=== PATIENT | female | born 1990 | race African-American/Black ===

== ENCOUNTER 2020-02-24 09:11 | Emergency (ER) | payer BC, MEDICAID, SELFPAY ==
--- NOTE | 2020-02-24 09:24 | ED.EYEPROB ---
HPI - Eye Problem General Chief complaint: Eye Problems Stated complaint: eye problems Time Seen by Provider: 02/24/20 09:45 Source: patient and RN notes reviewed Mode of arrival: ambulatory Limitations: no limitations History of Present Illness HPI Narrative: 30-year-old female presents with concern for right upper and lower eyelid swelling, right facial swelling and tenderness. Denies vision changes, reports small amount of crusty drainage to the right eye. Reports chronic sinus congestion. Reports taking an Aleve D yesterday, and using [id number] Visine eyedrops with little relief. She denies fever, malaise. chief complaint: other (Sinus tenderness) Related Data Home Medications Medication Instructions Recorded Confirmed albuterol sulfate 2 inh INHALATION Q4-5H PRN 02/24/20 02/24/20 Allergies Allergy/AdvReac Type Severity Reaction Status Date / Time No Known Allergies Allergy Verified 02/24/20 09:45 Review of Systems Review of Systems: Narrative: CONSTITUTIONAL: Denies malaise, chills, sweats, or fever. EYES: Denies visual changes, redness. Reports mild upper and lower eyelid swelling with small amount of crusty discharge. ENT: Denies rhinorrhea, otalgia or sore throat. Reports nasal congestion, frontal sinus tenderness CARDIOVASCULAR: Denies chest pain, palpitations, or edema. RESPIRATORY: Denies cough or dyspnea. SKIN: Denies rash or itching. MUSCULOSKELETAL: Denies myalgia. NEUROLOGIC: Denies numbness, weakness, or headache. All systems reviewed & are unremarkable except as noted in HPI and below PMFSH Comments At time of signature, agree with nursing past medical, surgical, social and family history. There is no relevant family history pertinent to the presenting complaint Exam Narrative: Exam Narrative: GENERAL: Well-appearing, well-nourished, and in no acute distress. HEAD: Normocephalic EYES: PERRLA, conjunctivae clear, sclera clear, EOMI, no drainage noted. Mild upper eyelid edema. No hordeolum, chalazion noted ENT: Nares clear, turbinates edematous and erythematous, clear discharge. Mucous membranes moist. TM pearly jesus with dull light reflex bilaterally; no tragal tenderness. Oropharynx not erythematous without lesions. Tonsils not enlarged and without exudate, no drooling, no hoarseness, no trismus, uvula midline. Maxillary sinus tenderness, mild right facial edema above maxillary sinuses NECK: Supple. No lymphadenopathy CHEST: Clear to auscultation, breath sounds equal. No wheezing, rhonchi, rales, or stridor. No respiratory distress, speaks in full sentences. HEART: Regular rate and rhythm. No murmur heard. SKIN: Warm, dry, no rash. NEURO: Alert and oriented x3. PSYCH: Normal mood and affect Course Course Emergency Course: Patient is aware of diagnosis, understands and agrees to treatment plan. Anticipatory guidance given. Patient agrees to follow-up as directed and is aware of reasons to seek care at the emergency department. Portions of this record may have been created with voice recognition software Vital Signs Vital signs: Reviewed. MDM - Eye Problem MDM Narrative Medical decision making narrative: Differential diagnosis considered: Conjunctivitis, hordeolum, chalazion, eye foreign body, strep pharyngitis, allergic rhinitis, upper respiratory tract infection, sinusitis, rhinosinusitis, nasopharyngitis. viral pharyngitis, otitis media, otitis externa, pneumonia, bronchitis, viral cough syndrome, viral syndrome, and influenza. Exam findings show no acute concerns or changes; patient is non-toxic appearing and is in no distress. Patient is appropriate for outpatient treatment and follow-up. Critical Care Time Critical Care Time Critical Care Time: No Discharge Plan Discharge Clinical Impression: Acute bacterial sinusitis Patient Disposition: Home, Self-Care Condition: Stable Instructions: Antibiotic Form, Sinusitis (ED) Additional Instructions: Take medicatio
[2020-02-24 09:45] VITALS: BP 137/89; PULSE 88; RESP 20; TEMP 36.9; O2SAT 100
== END 2020-02-24 10:03 | disposition home or self-care (01) ==
PROVIDERS: Emergency Provider Nurse Practitioner
DX: J01.90 Acute sinusitis, unspecified (principal); B96.89 Other specified bacterial agents as the cause of diseases classified elsewhere; J45.909 Unspecified asthma, uncomplicated; Z98.84 Bariatric surgery status
CPT/HCPCS: 99213; G0463

== ENCOUNTER 2020-03-20 08:15 | Emergency (ER) | payer BC, MEDICAID, SELFPAY ==
[2020-03-20 08:36] VITALS: BP 135/90; PULSE 90; RESP 16; TEMP 37.4; O2SAT 100
--- NOTE | 2020-03-20 08:43 | ED.URI ---
HPI - URI/Sore Throat General Chief Complaint: Upper Respiratory Infection Stated Complaint: ear/nose/throat Time Seen by Provider: 03/20/20 08:43 Source: patient and RN notes reviewed History of Present Illness HPI Narrative: Patient is a 30-year-old female who presents the urgent care with complaints of a sinus infection. Patient was seen here 1 month ago and placed on prednisone and Augmentin at that time. Patient states that she also had a negative COVID test. Patient states that her current symptoms started on Wednesday after it started raining . Patient states that she has had runny nose, flareup in her asthma, sinus pressure, and intermittent congestion. Patient has been using Tylenol, Vicks and a dose of Claritin yesterday. Patient is also requesting a refill of her albuterol inhaler. Currently denies any known fevers, nausea, vomiting, shortness of breath. No other acute complaints. No acute distress noted. Patient aware of the plan of care. Related Data Allergies Allergy/AdvReac Type Severity Reaction Status Date / Time No Known Allergies Allergy Verified 03/20/20 08:45 Review of Systems Review of Systems: Narrative: CONSTITUTIONAL: Denies fever, chills, or sweats. EYES: Denies visual changes, redness, or discharge. ENT: Reports of rhinorrhea, congestion, postnasal drainage CARDIOVASCULAR: Denies chest pain, palpitations, or edema. RESPIRATORY: Denies cough or dyspnea. GASTROINTESTINAL: Denies abdominal pain, nausea, vomiting, or diarrhea. GENITOURINARY: Denies dysuria or hematuria. SKIN: Denies rash or itching. MUSCULOSKELETAL: Denies back pain, joint pain, or myalgia. NEUROLOGIC: Denies headache, numbness, or weakness. All other systems reviewed are negative, except as documented in HPI. PMFSH Social History Social History Gender identity (if verbalized by the patient): Female Comments At the time of my signature, I reviewed and agree with the nursing past medical, surgical, social, and family history. There is no relevant family history pertinent to the patient complaint. Exam Narrative: Exam Narrative: GENERAL: This is a well-nourished, well-developed patient, in no apparent distress. HEAD: normocephalic, atraumatic. Mild frontal sinus tenderness EYES: PERRL. Sclera clear/white. Vision is grossly intact. EARS: External ears normal, auditory canals clear and without drainage, TMs normal without perforation. Hearing grossly intact. NOSE: External nose normal with no obvious nasal discharge, nares without redness, no rhinorrhea. THROAT: Mucous membranes moist, posterior pharynx clear. Mild postnasal drainage NECK: Neck supple CARDIOVASCULAR: Regular rate and rhythm without murmurs, gallops, or rubs. RESPIRATORY: Clear to auscultation. Breath sounds equal bilaterally. No wheezes, rales, or rhonchi. SKIN: warm, intact with no suspicious lesions or rash, good texture and turgor. NEURO: awake, alert, and oriented to person, place and time. There were no obvious focal neurologic abnormalities. EXTREMITIES: No clubbing, cyanosis, or edema. Course Vital Signs Vital signs: Vital Signs Temperature 99.3 F 03/20/20 08:36 Pulse Rate 90 03/20/20 08:36 Respiratory Rate 16 03/20/20 08:36 Blood Pressure 135/90 03/20/20 08:36 Pulse Oximetry 100 03/20/20 08:36 Temperature 99.3 F 03/20/20 08:36 Pulse Rate 90 03/20/20 08:36 Respiratory Rate 16 03/20/20 08:36 Blood Pressure 135/90 03/20/20 08:36 Pulse Oximetry 100 03/20/20 08:36 Reviewed MDM - URI/Sore Throat MDM Narrative Medical decision making narrative: Advised the patient to continue using an [id number] antihistamine such as Claritin or Zyrtec daily. Use the Flonase nasal spray daily. Complete steroid regimen as prescribed. Make sure to eat and drink with the medication. Use albuterol inhaler as needed for asthma-like symptoms. If you develop any increase in symptoms associated with fever, nausea, vomiting, severe hea
== END 2020-03-20 08:57 | disposition home or self-care (01) ==
PROVIDERS: Emergency Provider Nurse Practitioner Family
DX: J00 Acute nasopharyngitis [common cold] (principal); J32.9 Chronic sinusitis, unspecified; J45.909 Unspecified asthma, uncomplicated; Z98.84 Bariatric surgery status
CPT/HCPCS: 99213; G0463

== ENCOUNTER 2021-08-04 15:13 | Emergency (ER) | payer OTHER, SELFPAY ==
[2021-08-04 15:25] VITALS: BP 110/71; PULSE 80; RESP 16; TEMP 37.1; O2SAT 100
--- NOTE | 2021-08-04 15:25 | ED.URI ---
HPI - URI/Sore Throat General Chief Complaint: Unspecified Stated Complaint: Chest Pain Time Seen by Provider: 08/04/21 15:25 Source: patient, RN notes reviewed and old records reviewed Mode of arrival: ambulatory Limitations: no limitations History of Present Illness HPI Narrative: 31-year-old female presents to the [facility] with complaints of chest wall pain when she is deep breathing. Has some issues with her asthma last weeks during the cold/warm days alternating. Is out of her inhaler as well. Called her primary care provider who sent her to the [facility] to be evaluated. Denies fevers. No chest pain, abdominal pain. No nausea vomiting or diarrhea. Denies shortness of breath currently. pain is easy to reproduce with palpation Related Data Allergies Allergy/AdvReac Type Severity Reaction Status Date / Time No Known Allergies Allergy Verified 08/04/21 15:34 Review of Systems Review of Systems: All systems reviewed & are unremarkable except as noted in HPI and below Constitutional: Constitutional: Reports no additional constitutional complaints, Denies chills and Denies fever(s) Eyes: Eyes: Reports no additional eye complaints ENT: Reports system reviewed and no additional complaints, except as documented Cardiovascular: Cardiovascular: Reports no additional cardiovascular complaints and Denies chest pain Respiratory: Respiratory: Reports no additional respiratory complaints, Denies chest congestion, Denies cough, Denies dyspnea and Denies wheezing Gastrointestinal: Gastrointestinal: Reports no additional gastrointestinal complaints, Denies abdominal pain, Denies nausea and Denies vomiting Musculoskeletal: Musculoskeletal: Reports no additional musculoskeletal complaints Integumentary/Breasts: Skin/Breast: Reports system reviewed and no additional complaints, except as docu Neurologic: Reports system reviewed and no additional complaints, except as documented Psychiatric: Psychiatric: Reports no additional psychiatric complaints Allergic/Immunologic: Allergic/Immunologic: Reports no additional allergic/immunologic complaints [facility] Past Medical History Medical History History of asthma Surgical History Surgical History (Updated 08/04/21 @ 15:37 by Digna Whitfield) History of weight loss surgery April 2019 Social History Social History (Updated 08/04/21 @ 15:38 by Digna Whitfield) Living arrangements: with family Occupation/Education: occupation Additional occupation/education comments: [employer] Gender identity (if verbalized by the patient): Female Comments At the time of my signature, I reviewed and agree with the nursing past medical, surgical, social, and family history. There is no relevant family history pertinent to the patient complaint. Exam Const: General: healthy appearing, no acute distress and alert Nutritional Appearance: well nourished Orientation/consciousness: patient oriented x3 HENMT: Head: normal to inspection Ears: external ears normal, TM's normal bilaterally and EAC's normal Mouth: Yes Normal oral and palatal mucosa present Throat: posterior oropharynx normal Eyes: Conjunctivae: conjunctivae normal Pupils: Equal, round and reactive pupils present Neck: Neck: normal visual inspection Chest: Chest palpation & inspection: tenderness (Right sternal border) no pectoral muscle xxx Resp: Effort & Inspection: normal respiratory effort and no use of accessory muscles Auscultation: clear to auscultation bilaterally, no crackles, no rales, no rhonchi and no wheezes Cardio: Rate: regular rate Rhythm: regular rhythm GI: GI Palp: Yes Soft to palpation and No Tenderness to palpation present (GI) Back/Spine/Pelvis: Back: no CVA tenderness Skin: General skin exam: normal color Rashes: no rashes Wounds: no wounds Neuro: General: patient oriented x3, moves all extremities, no meningeal signs and no focal motor def
== END 2021-08-04 15:40 | disposition home or self-care (01) ==
PROVIDERS: Emergency Provider Nurse Practitioner; PCP Emergency Medicine
DX: M94.0 Chondrocostal junction syndrome [Tietze] (principal)
CPT/HCPCS: 99213; G0463

== ENCOUNTER → 2021-08-26 10:16 | Outpatient (CLI) | payer OTHER, SELFPAY ==
[2021-08-27 13:33] LABS: SARS-CoV-2 RNA PCR Positive
== END ==
PROVIDERS: PCP Emergency Medicine; Visit Provider Emergency Medicine
DX: U07.1 COVID-19 (principal)
CPT/HCPCS: C9803; U0003; U0005

== ENCOUNTER 2022-01-14 07:10 | Outpatient (CLI) | payer OTHER, SELFPAY ==
--- NOTE | ~2022-01-14 | CT_ITS ---
EXAMINATION: CT abdomen pelvis wo con DATE: 01/14/2022 07:30 INDICATION: Right upper quadrant abdominal pain and nausea TECHNIQUE: Computed tomography (CT) of the abdomen and pelvis was performed without intravenous contr ast. Automated exposure control and iterative reconstruction technique were employed. The dose-length product was 289.30 mGy-cm. COMPARISON: None FINDINGS: Lung bases are clear. Just inferior heart is normal. No pericardial or pleural effusion. Small slidin g-type hiatal hernia. Postoperative changes along the stomach suggesting possible gastric bypass proc edure. High attenuation sludge versus tiny gallstones layering in the dependent aspect of the otherwi se normal gallbladder. No gallbladder dilation, wall thickening or pericholecystic inflammatory stran ding to suggest acute cholecystitis. Liver, spleen, pancreas and bilateral adrenal glands are normal. Kidneys and ureters are normal with no urolithiasis, hydroureteronephrosis or perinephric/ureteral s tranding. Bladder and anteverted uterus are unremarkable. Suggestion of tubal ligation rings at the b ilateral adnexa. There are also a couple phleboliths at the left adnexa. Normal retrocecal appendix. Likely ingested pill within a loop of small bowel in the pelvis. No abnormal bowel wall thickening or obstruction. IMPRESSION: 1. Sludge versus gallstones layering in the otherwise normal gallbladder. No evident acute intra-abdo endy/pelvic process. 2. Small sliding-type hiatal hernia with change of likely gastric bypass procedure. Reviewed, dictated and finalized at location A. IMPRESSION: 1. Sludge versus gallstones layering in the otherwise normal gallbladder. No ev ident acute intra-abdominal/pelvic process. 2. Small sliding-type hiatal hernia with change of likely gastric bypass proced ure.
--- NOTE | ~2022-01-14 | US_ITS ---
EXAMINATION: US abdomen complete DATE: 01/14/2022 08:01 INDICATION: Right upper quadrant abdominal pain. Nausea. TECHNIQUE: Multiple grayscale and Doppler ultrasound images of the abdomen were obtained. COMPARISON: CT abdomen and pelvis 01/14/2022 FINDINGS: The visualized portions of the head and body of the pancreas are normal. Abdominal aorta an d inferior vena cava are normal. The liver is normal without focal lesion. There is normal flow in ma in portal vein. The gallbladder is normal in size and contains gallstones. No gallbladder wall thicke luis or sonographic Darling sign. The common duct is normal and measures 2 mm. The kidneys are normal in size. The spleen is normal in size. IMPRESSION: 1. Cholelithiasis. No evidence of acute cholecystitis. Reviewed, dictated and finalized at location B.
[2022-01-14 08:47] LABS: Hematocrit 38.2 % (37.0-47.0); Hemoglobin 12.4 g/dL (12.0-15.0); Mean Corpuscular HGB Conc 32.5 g/dl (32-36); Mean Corpuscular Hemoglobin 30.4 pg (26-34); Mean Corpuscular Volume 93.6 fl (80-100); Mean Platelet Volume 11.2 fl (7.4-10.4); Platelet Count Result 183 k/mm3 (150-375); Red Blood Count 4.08 M/mm3 (4.2-5.4); Red Cell Distribution Width 11.9 % (11.5-14.5); White Blood Count 6.2 K/mm3 (4.5-10.0)
[2022-01-14 08:59] LABS: Alanine Aminotransferase 14 U/L (6-35); Albumin Level 4.5 g/dL (3.5-5.1); Alkaline Phosphatase 131 U/L (38-126); Anion Gap 6 mmol/L (8-16); Aspartate Amino Transferase 23 U/L (14-36); Bilirubin,Total 1.2 mg/dL (0.2-1.3); Blood Urea Nitrogen 12 mg/dL (7-17); Calcium 8.2 mg/dL (8.4-10.2); Carbon Dioxide 22 mmol/L (22-30); Chloride 108 mmol/L (98-107); Cholesterol 137 mg/dL (0-200); Estimated Glomerular Filt Rate > 60; Glucose 87 mg/dL (65-110); HDL Direct 51 mg/dL; Potassium 3.8 mmol/L (3.4-5.0); Sodium 136 mmol/L (137-145); Triglycerides 45 mg/dL (<150)
[2022-01-14 09:12] LABS: LDL Cholesterol Direct 57 mg/dL
[2022-01-14 09:34] LABS: Iron 104 ug/dL (37-170)
[2022-01-14 09:36] LABS: Hepatitis B Surface Antigen Negative (Negative)
[2022-01-14 09:42] LABS: HAV RESULT Negative (Negative); Hepatitis B Core IgM Result Negative (Negative)
[2022-01-14 09:46] LABS: Percent Iron Saturation 38 % (20-50)
[2022-01-14 09:50] LABS: Free T4 Free Thyroxine 1.35 ng/mL (0.78-2.19)
[2022-01-14 09:54] LABS: Hepatitis C Virus Antibody Negative (Negative)
[2022-01-14 12:47] LABS: Hemoglobin A1C 4.7 % (<5.7)
== END 2022-01-14 07:11 | disposition home or self-care (01) ==
PROVIDERS: PCP Emergency Medicine; Visit Provider Emergency Medicine
DX: R10.9 Unspecified abdominal pain (principal); K80.20 Calculus of gallbladder without cholecystitis without obstruction; J45.909 Unspecified asthma, uncomplicated; K44.9 Diaphragmatic hernia without obstruction or gangrene
CPT/HCPCS: 36415; 74176; 76700; 80053; 80061; 80074; 83036; 83540; 83550; 84439; 84443; 85027

== ENCOUNTER 2022-04-08 01:27 | Day surgery (SDC) | payer OTHER, SELFPAY ==
[2022-03-31 17:02] VITALS: BMI 23.1
--- NOTE | 2022-03-31 17:17 | PC.NURSE ---
Addendum entered by Wil Soliman RN 03/31/22 17:19: Hold multivitamin on 04/05/22 Original Note: Report to the Outpatient Waiting Room, entrance under the green pavilion located off [address], at time _1100 on date 04/08/22. OR Time: 1300 - You and your visitor will be asked a series of questions to screen for COVID 19 for your protection. - Only one visitor is allowed at this time. - The patient visitor is requested to leave or wait in car when not with patient. - A mask is required within the hospital. Patients may have clear liquids (water, carbonated beverages, clear teas, apple juice) until 3 hours prior to surgery with a maximum of 20 ounces. - No food from midnight until time of surgery - Infants may have breast milk until 4 hours before surgery, infant formula 6 hours prior to surgery. - Children will be allowed to drink immediately following surgery. If applicable, please bring a bottle or sippy cup to assist with drinking. Juice, water, soda, and popsicles are readily available. For infants on formula, please bring formula the day of surgery. Pacifiers are allowed. Take the following medications with a SIP of water the morning of surgery: n/a Medications to discontinue per physician Date to take last dose Please no make-up, nail amharic, hairspray, perfume, deodorant, or body powder the day of surgery. No jewelry (including any body piercings) or valuables the day of surgery, leave them at home. Please take a shower or bath the night before, or the morning of, surgery with an antibacterial soap. Wear comfortable, loose fitting clothing. Children are encouraged to wear pajamas. - Jewelry must be removed prior to entering the operating room. Rings and piercings that are not removed may be cut off. - The hospital will not accept responsibility for valuables. - Please leave all valuables, including medications, at home the day of surgery. If you are going home after surgery, a licensed driver helper must drive you home. - NO public transportation without another adult. - We recommend that an adult stay with you for 24 hours following discharge. - We also recommend that you do not drive, make important decision, drink alcoholic beverages, or take any drugs that were not prescribed by your health care provider for at least 24 hours after your discharge time. For Pediatric surgeries, we recommend two adults accompany the child home (only one inside the building at this time). Follow any additional instructions given to you from your surgeon. If you or anyone in your household have experienced Covid symptoms in the past week, please notify your surgeon or the nurse liaison at the phone number below for possible testing. Telephone instructions given to Brandie Najera and asked if any additional questions and then verbalized understanding. Patient advised to call surgeon office or pre surgery nurse liaison [phone] if any additional questions.
--- NOTE | 2022-04-07 15:37 | P.PNAN_ITS ---
Anes - Initial Pre Proc Eval Procedure: Operation Date: 04/08/22 13:00 Proposed Procedures p Rectal Exam Under Anesthesia, Internal Hemorrhoid Banding - Merlin Clemente DO Date/Time: 04/07/22 15:37 Surgeon: Merlin Clemente DO Pre Op Diagnosis: grade 3 internal hemorrhoids Patient Data Age: 32 Gender: F Height: 1.78 m Weight: 73 kg Allergies Allergy/AdvReac Type Severity Reaction Status Date / Time No Known Allergies Allergy Verified 03/27/22 09:37 Home Medications Medication Instructions Recorded Confirmed Type albuterol sulfate 90 mcg/actuation 2 puff inhalation QID PRN 03/20/20 03/31/22 Rx aerosol inhaler shortness of breath or wheezing #8 grams multivit with minerals-iron 18 1 tablet PO DAILY 03/31/22 03/31/22 History mg-folic ac 400 mcg-vit K 25 mcg tablet (Adults Multivitamin) Patient hx anesthesia problems: none Family hx anesthesia problems: none Results Review: All pre-operative results and documents have been reviewed as part of the pre- operative evaluation. [facility] Past Medical History Medical History (Updated 03/27/22 @ 10:13 by Elly Mcclure) History of asthma Surgical History Surgical History (Updated 04/07/22 @ 15:37 by Yogi Almaraz DO) H/O dilation and curettage H/O tubal ligation History of sleeve gastrectomy 2019 Family History Family History Other Hypertension Kidney disease Social History Social History Smoking status: Never smoker Alcohol intake: current Alcohol use details: Socially Substance use: never Living arrangements: with family Additional occupation/education comments: [employer] Gender identity (if verbalized by the patient): Female Spiritual care concerns: No Anes - Eval Final PreProcedure Day of Procedure 04/07/22 15:37 Patient weight: normal Heart: regular rate and rhythm Lungs: clear to auscultation Airway: Mallampati scale class II Neurological: alert and oriented Last oral intake: >/= 8 hours ASA classification: II Emergent: no Anesthetic plan: proceed Anesthesia type and monitoring: general GIVS and standard monitoring Results Review: All pre-operative results and documents have been reviewed as part of the pre- operative evaluation. Informed Consent: The patient's anesthetic plan and its attendant risks and benefits were discussed with the patient/family/POA. Questions were solicited and answers provided to the satisfaction of the patient/family/POA.
[2022-04-08 11:30] VITALS: BP 104/68; PULSE 75; RESP 14; TEMP 36.6; O2SAT 100
[2022-04-08] MEDS: KETOROLAC 15 MG/ML VIAL (*BKC) IV PUSH (11:30)
[2022-04-08] MEDS: LACTATED RINGERS 1,000 ML 30 ML IV CONT (11:30)
[2022-04-08] MEDS: ACETAMINOPHEN 500 MG TABLET 1000 MG PO (11:30)
--- NOTE | 2022-04-08 13:23 | SUR.PREOP ---
pt informed delay in procedure.
--- NOTE | 2022-04-08 13:45 | WPDHPUPDATE1 ---
History and Physical Update Update Date/Time: 04/08/22 13:45 History and Physical has been reviewed, including an updated exam of the patient. There are NO changes in the patient's condition. Risks, benefits, and alternatives have been discussed and questions answered. Patient agrees to proceed with procedure.
[2022-04-08] MEDS: ceFAZolin 2 GM/D5W 50 ML 2 GM/50 ML BAG IVPB (13:58)
[2022-04-08] MEDS: LIDO 1%/EPINEPHRINE 1:100,000 10 ML VIAL INFILTRATE (14:12)
[2022-04-08 14:16] VITALS: BP 96/61; PULSE 71; RESP 16; O2SAT 100
--- NOTE | 2022-04-08 14:18 | W.PM.PROC2 ---
Procedure Note - Detailed Date of Procedure 04/08/22 Pre-op Diagnosis grade 3 internal hemorrhoids Post-op Diagnosis Same Procedure Performed Rectal exam under anesthesia with rubber-band ligation of internal hemorrhoids x3 Surgeon Merlin Clemente, DO Anesthesia MAC and Local (1% lidocaine with epinephrine) Indications This is a 32-year-old woman who presented with recurrent bright red bleeding after bowel movements. She was not experiencing any significant pain. She was found to have prolapsing internal hemorrhoids on exam. Patient was unable to tolerate office procedure, therefore decision was made to proceed with rectal exam under anesthesia with internal hemorrhoid banding under IV sedation. Findings Rectal exam was performed using a Hill-Hilario anoscope. Patient was found to have mild prolapsing internal hemorrhoid tissue in the left lateral, left posterior, and anterior midline regions. Rubber-band ligation was performed in all 3 of these locations. No specimens were obtained for pathology. Description of Procedure Procedure as well as risks, benefits, and alternatives were discussed with patient. Written consent was obtained and placed in chart prior to procedure. Patient was brought back to surgical suite. She was placed in left lateral decubitus position on stretcher. Time-out was done to confirm patient and procedure. IV sedation was then administered by the anesthesia department. Digital rectal exam was initially performed. A Hill-Hilario anoscope was then inserted and the anal rectal canal was carefully inspected. Rubber-band ligation of internal hemorrhoids was performed in the left lateral, left posterior, and anterior midline regions. Lidocaine with epinephrine was infiltrated at the base each of these hemorrhoids. 1 final inspection was made around the area no other abnormalities were noted. The anoscope was then removed, patient was awakened from anesthesia, and she was transferred to recovery. Estimated Blood Loss 2 Complications No immediate complications Condition Stable Disposition Same day [facility] Billing Surgery - Charge Forward: Surgery Billing
[2022-04-08 14:45] VITALS: BP 105/68; PULSE 83; RESP 16
[2022-04-08] MEDS: oxyCODONE HCL (*CRX) 5 MG TAB IR PO (14:52)
[2022-04-08 15:15] VITALS: BP 102/66; PULSE 66; RESP 16
== END 2022-04-08 15:20 | disposition home or self-care (01) ==
PROVIDERS: PCP Emergency Medicine; Visit Provider Surgery
PROC: (CPT 46221; principal; 2022-04-08 13:00)
DX: K64.2 Third degree hemorrhoids (principal); J45.909 Unspecified asthma, uncomplicated; Z79.51 Long term (current) use of inhaled steroids; Z98.84 Bariatric surgery status
CPT/HCPCS: 46221; A9270; J0690; J1885; J2250; J2704; J7120

== ENCOUNTER 2022-04-15 17:47 | Emergency (ER) | payer OTHER, SELFPAY ==
[2022-04-15 17:52] VITALS: BP 108/70; PULSE 85; RESP 16; TEMP 36.6; O2SAT 100
--- NOTE | 2022-04-15 17:52 | ED.URI ---
HPI - URI/Sore Throat General Chief Complaint: Upper Respiratory Infection Stated Complaint: uri/cp Time Seen by Provider: 04/15/22 18:07 Source: patient and RN notes reviewed Mode of arrival: ambulatory Limitations: no limitations History of Present Illness HPI Narrative: 32-year-old female with history of asthma presents with concern for upper chest congestion, discomfort, sinus congestion, sinus pain, facial pain and pressure. She reports she has been using her albuterol inhaler more frequently than usual. She denies fever, bodies, chills, sweats. Reports fatigue. Reports she has had trouble sleeping at night due to her symptoms. She recently had an outpatient surgery for which she has been taking pain medicine. She said the pain medicine does not improve her sinus pain. MD elicited complaint: cough Related Data Home Medications Medication Instructions Recorded Confirmed multivit with minerals-iron 18 1 tablet PO DAILY 03/31/22 03/31/22 mg-folic ac 400 mcg-vit K 25 mcg tablet (Adults Multivitamin) hydrocodone 5 mg-acetaminophen 325 tablet 04/15/22 mg tablet Allergies Allergy/AdvReac Type Severity Reaction Status Date / Time No Known Allergies Allergy Verified 03/27/22 09:37 Review of Systems Review of Systems: CONSTITUTIONAL: Reports malaise. Denies chills, sweats, or fever. EYES: Denies visual changes, redness, or discharge. ENT: Reports rhinorrhea, congestion, sinus pain. Denies otalgia and sore throat. CARDIOVASCULAR: Denies chest pain, palpitations, or edema. RESPIRATORY: Reports cough. Denies dyspnea. GASTROINTESTINAL: Denies abdominal pain, nausea, vomiting, diarrhea SKIN: Denies rash or itching. MUSCULOSKELETAL: Reports myalgia. NEUROLOGIC: Reports headache. All systems reviewed & are unremarkable except as noted in HPI and below PMFSH Past Medical History Medical History (Updated 04/15/22 @ 18:18 by Digna Long NP) History of asthma Surgical History Surgical History (Updated 04/07/22 @ 15:37 by Yogi Almaraz DO) H/O dilation and curettage H/O tubal ligation History of sleeve gastrectomy 2019 Family History Family History Other Hypertension Kidney disease Social History Social History (Reviewed 03/27/22 @ 09:37 by Hilda De La Rosa [facility] Smoking status: Never smoker Alcohol intake: current Alcohol use details: Socially Substance use: never Additional occupation/education comments: MA Gender identity (if verbalized by the patient): Female Spiritual care concerns: No Comments At time of signature, agree with nursing past medical, surgical, social and family history. There is no relevant family history pertinent to the presenting complaint Exam Narrative: GENERAL: Nontoxic appearing and in no acute distress. HEAD: Normocephalic EYES: PERRLA, conjunctivae clear ENT: Nares clear, turbinates edematous and erythematous, sinus tenderness. Mucous membranes moist. TM pearly jesus with dull light reflex bilaterally; no tragal tenderness. Oropharynx not erythematous without lesions. Tonsils not enlarged and without exudate, no drooling, no hoarseness, no trismus, uvula midline. NECK: Supple. No lymphadenopathy CHEST: Clear to auscultation, breath sounds equal. No wheezing, rhonchi, rales, or stridor. No respiratory distress, speaks in full sentences. Reproducible sternal tenderness HEART: Regular rate and rhythm. No murmur heard. SKIN: Warm, dry, no rash. NEURO: Alert and oriented x3. PSYCH: Normal mood and affect Course Course Emergency Course: Patient is aware of diagnosis, understands and agrees to treatment plan. Anticipatory guidance given. Patient agrees to follow-up as directed and is aware of reasons to seek care at the emergency department. Portions of this record may have been created with voice recognition software Level of Care: Express Care Visit Vital Signs Vital signs:
== END 2022-04-15 18:22 | disposition home or self-care (01) ==
PROVIDERS: Emergency Provider Nurse Practitioner; PCP Emergency Medicine
DX: J06.9 Acute upper respiratory infection, unspecified (principal); R05.9 Cough, unspecified; J45.909 Unspecified asthma, uncomplicated; Z98.84 Bariatric surgery status
CPT/HCPCS: 99213; G0463

== ENCOUNTER 2022-07-20 09:17 | Emergency (ER) | payer OTHER, SELFPAY ==
--- NOTE | 2022-07-20 09:19 | ED.EXTPRO ---
HPI - Extremity Problem General Chief complaint: Extremity Problem,Nontraumatic Stated complaint: Both Feet Pain Time Seen by Provider: 07/20/22 09:25 Source: patient, RN notes reviewed and old records reviewed Mode of arrival: ambulatory Limitations: no limitations History of Present Illness HPI Narrative: 32-year-old female presents to the [facility] with thinning nails, chipping nails and discomfort in her great toe for the last 2 months. States that she normally gets her toenails done but states this is been going on has not. Has not seen her primary, requesting a new 1. No redness or swelling noted Related Data Allergies Allergy/AdvReac Type Severity Reaction Status Date / Time No Known Allergies Allergy Verified 07/20/22 09:25 Review of Systems Review of Systems: All systems reviewed & are unremarkable except as noted in HPI and below Constitutional: Constitutional: Reports no additional constitutional complaints, Denies chills and Denies fever(s) Eyes: Eyes: Reports no additional eye complaints ENT: Reports system reviewed and no additional complaints, except as documented Cardiovascular: Cardiovascular: Reports no additional cardiovascular complaints Respiratory: Respiratory: Reports no additional respiratory complaints Gastrointestinal: Gastrointestinal: Reports no additional gastrointestinal complaints Musculoskeletal: Musculoskeletal: Reports as per HPI (Toenail issues) Integumentary/Breasts: Skin/Breast: Reports system reviewed and no additional complaints, except as docu Neurologic: Reports system reviewed and no additional complaints, except as documented Psychiatric: Psychiatric: Reports no additional psychiatric complaints Allergic/Immunologic: Allergic/Immunologic: Reports no additional allergic/immunologic complaints PMFSH Past Medical History Medical History History of asthma Surgical History Surgical History H/O dilation and curettage H/O tubal ligation History of sleeve gastrectomy 2019 Hx of hemorrhoidectomy hemorrhoid banding on 04/08/22 Family History Family History Other Hypertension Kidney disease Social History Social History Smoking status: Never smoker Alcohol intake: current Alcohol use details: Socially Substance use: never Additional occupation/education comments: MA Gender identity (if verbalized by the patient): Female Spiritual care concerns: No Comments At the time of my signature, I reviewed and agree with the nursing past medical, surgical, social, and family history. There is no relevant family history pertinent to the patient complaint. Exam Const: General: healthy appearing, comfortable, no acute distress, well developed, alert and well nourished Nutritional Appearance: well nourished Orientation/consciousness: patient oriented x3 Limitations: no limitations HENMT: Head: normal to inspection Ears: external ears normal Face/Nose/Sinus: Normal external nose present Face and sinus: normal facial exam Eyes: General: appearance normal, both eyes and all related structures Pupils: Equal, round and reactive pupils present Neck: Neck: normal visual inspection, full ROM, no lymphadenopathy and no meningeal signs Chest: Chest palpation & inspection: normal inspection of the chest Resp: Effort & Inspection: normal respiratory effort and no use of accessory muscles Auscultation: clear to auscultation bilaterally, no crackles, no rales, no rhonchi and no wheezes Cardio: Rate: regular rate Rhythm: regular rhythm Back/Spine/Pelvis: Cervical Spine: cervical ROM normal and No Cervical spine tenderness Thoracic/Lumbar Spine: thoracic and lumbar spine normal to inspection and thoraco-lumbar ROM normal Skin: General skin exam: n
[2022-07-20 09:20] VITALS: BP 114/65; PULSE 86; RESP 12; TEMP 36.8; O2SAT 100
== END 2022-07-20 09:44 | disposition home or self-care (01) ==
PROVIDERS: Emergency Provider Nurse Practitioner; PCP Emergency Medicine
DX: B35.1 Tinea unguium (principal); J45.909 Unspecified asthma, uncomplicated
CPT/HCPCS: 99213; G0463

== ENCOUNTER 2022-07-29 09:37 | Outpatient (CLI) | payer OTHER, SELFPAY ==
[2022-07-29 11:02] LABS: Basophils Percent Auto 0.6 % (0.2-1.2); Eosinophils Absolute Auto 0.1 K/mm3 (0-0.3); Eosinophils Percent Auto 2.2 % (0-4.4); Hematocrit 41.8 % (37.0-47.0); Hemoglobin 13.3 g/dL (12.0-15.0); Immature Granulocyte Absolute 0.01 K/mm3 (0.00-0.031); Immature Granulocyte Percent A 0.2 % (0-0.5); Lymphocytes Percent Auto 27.6 % (18.3-44.2); Mean Corpuscular HGB Conc 31.8 g/dl (32-36); Mean Corpuscular Volume 94.1 fl (80-100); Mean Platelet Volume 11.2 fl (7.4-10.4); Monocytes Absolute Auto 0.4 K/mm3 (0.1-0.6); Monocytes Percent Auto 5.4 % (2.6-8.5); Neutrophils Absolute Auto 4.2 K/mm3 (1.3-6.7); Platelet Count Result 191 k/mm3 (150-375); Red Blood Count 4.44 M/mm3 (4.2-5.4); White Blood Count 6.5 K/mm3 (4.5-10.0)
[2022-07-29 11:04] LABS: Hemoglobin A1C 4.8 % (<5.7)
[2022-07-29 11:09] LABS: Alanine Aminotransferase 26 U/L (6-35); Albumin Level 4.8 g/dL (3.5-5.1); Alkaline Phosphatase 152 U/L (38-126); Anion Gap 9 mmol/L (8-16); Aspartate Amino Transferase 30 U/L (14-36); Bilirubin,Total 1.4 mg/dL (0.2-1.3); Blood Urea Nitrogen 12 mg/dL (7-17); Calcium 8.6 mg/dL (8.4-10.2); Carbon Dioxide 23 mmol/L (22-30); Chloride 107 mmol/L (98-107); Cholesterol 152 mg/dL (0-200); Estimated Glomerular Filt Rate > 60; Glucose 93 mg/dL (65-110); HDL Direct 56 mg/dL; Potassium 3.8 mmol/L (3.4-5.0); Sodium 139 mmol/L (137-145); Triglycerides 58 mg/dL (<150)
[2022-07-29 11:20] LABS: LDL Cholesterol Direct 61 mg/dL
[2022-07-29 11:56] LABS: Vitamin D 25 Hydroxy 18.5 ng/mL
[2022-07-29 12:14] LABS: Folic Acid 4.9 ng/mL (2.76->20)
[2022-07-31 23:16] LABS: Zinc 64 mcg/dL (60-130)
[2022-08-01 17:12] LABS: Vitamin B6 49.1 ng/mL (2.1-21.7)
== END 2022-07-29 09:38 | disposition home or self-care (01) ==
LOC: ANHLAB 09:38
PROVIDERS: PCP Emergency Medicine; Visit Provider Emergency Medicine
DX: E55.9 Vitamin D deficiency, unspecified (principal); Z98.84 Bariatric surgery status
CPT/HCPCS: 36415; 80053; 80061; 82306; 82607; 82746; 83036; 84207; 84630; 85025

== ENCOUNTER 2023-05-16 17:04 | Emergency (ER) | payer OTHER, SELFPAY ==
--- NOTE | 2023-05-16 17:11 | ED.URI ---
HPI - URI/Sore Throat General Chief Complaint: Upper Respiratory Infection Stated Complaint: Sinus Time Seen by Provider: 05/16/23 17:07 Source: patient Mode of arrival: ambulatory Limitations: no limitations History of Present Illness HPI Narrative: Patient is a 33-year-old female who presents with 3 days of sinus congestion, severe sinus pressure/pain, runny nose, cough. Patient denies any fever, chills, shortness of breath, ear pain, sore throat, nausea, vomiting, diarrhea. Patient does have history of asthma but is currently out of albuterol inhaler and nebulizer treatments. Patient took 2 pills of azithromycin this morning, has also been using Claritin, Zyrtec, Sudafed D with mild relief. Related Data Home Medications Medication Instructions Recorded Confirmed albuterol sulfate 90 mcg/actuation 1 inh inhalation Q4H 07/20/22 05/16/23 aerosol inhaler Allergies Allergy/AdvReac Type Severity Reaction Status Date / Time No Known Allergies Allergy Verified 05/16/23 17:07 Review of Systems Review of Systems: All systems reviewed & are unremarkable except as noted in HPI and below Constitutional: Constitutional: Denies body ache(s), Denies chills, Denies fatigue, Denies fever(s), Denies headache(s), Denies malaise and Denies weakness Eyes: Eyes: Denies blurry vision, Denies itchy eyes and Denies loss of vision ENT: Denies otalgia, Denies headache(s), Reports nasal congestion, Reports nasal discharge, Reports sinus pain, Reports sinus pressure and Denies sore throat Cardiovascular: Cardiovascular: Denies chest pain, Denies irregular heart rhythm and Denies dyspnea Respiratory: Respiratory: Reports cough and Denies dyspnea Gastrointestinal: Gastrointestinal: Denies abdominal pain, Denies diarrhea, Denies nausea and Denies vomiting Musculoskeletal: Musculoskeletal: Denies back pain, Denies myalgias and Denies arthralgias Integumentary/Breasts: Skin/Breast: Denies pruritus and Denies rash Neurologic: Denies headache(s), Denies loss of vision and Denies weakness Psychiatric: Psychiatric: Reports no additional psychiatric complaints Endocrine: Endocrine: Denies fatigue Allergic/Immunologic: Allergic/Immunologic: Denies itchy eyes PMFSH Past Medical History Medical History History of asthma Surgical History Surgical History H/O dilation and curettage H/O tubal ligation History of sleeve gastrectomy 2019 Hx of hemorrhoidectomy hemorrhoid banding on 04/08/22 Family History Family History Other Hypertension Kidney disease Social History Social History Smoking status: Never smoker Alcohol intake: current Alcohol use details: Socially Substance use: never Lack of Transportation: No Lack of Food: Never True Current Housing: I Have Housing Concerned About Future Housing: No Difficulty Paying Gas/Electric Bills: No Difficulty Paying for Meds: No Currently Unemployed: No Education: Trade/Vocational Certificate Difficulty w/ Childcare or Family Care: No Living arrangements: with family 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 There is no relevant family history pertinent to the presenting complaint. Exam Const: General: cooperative, healthy appearing, comfortable, no acute distress and well nourished Nutritional Appearance: well nourished Orientation/consciousness: patient oriented x3 Limitations: no limitations HENMT: Head: normal to inspection, normocephalic and atraumatic Ears: hearing grossly normal bilaterally, director of supply chain
[2023-05-16 17:12] VITALS: BP 108/60; PULSE 89; RESP 16; TEMP 36.6; O2SAT 100
== END 2023-05-16 18:05 | disposition home or self-care (01) ==
PROVIDERS: Emergency Provider Nurse Practitioner Family
DX: J01.40 Acute pansinusitis, unspecified (principal); J45.909 Unspecified asthma, uncomplicated; Z98.84 Bariatric surgery status
CPT/HCPCS: 99213; G0463

== ENCOUNTER 2024-01-02 08:11 | Emergency (ER) | payer OTHER, SELFPAY ==
--- NOTE | 2024-01-02 08:19 | ED.URI ---
HPI - URI/Sore Throat General Chief Complaint: Asthma Stated Complaint: Chest Wall Pain/Cough Time Seen by Provider: 01/02/24 08:30 Source: patient, RN notes reviewed and old records reviewed Mode of arrival: ambulatory Limitations: no limitations History of Present Illness HPI Narrative: 33-year-old female presents to the [facility] with complaints cough for 1 week. Reports when she coughs she has generalized chest wall discomfort. Denies any fevers. Denies any other symptoms. States that she did use her albuterol inhaler last night. Onset (ago): week(s) (1) Treatments prior to arrival: cold medicine Related Data Allergies Allergy/AdvReac Type Severity Reaction Status Date / Time No Known Allergies Allergy Verified 01/02/24 08:37 Review of Systems Review of Systems: All systems reviewed & are unremarkable except as noted in HPI and below Constitutional: Constitutional: Reports no additional constitutional complaints Eyes: Eyes: Reports no additional eye complaints ENT: Reports system reviewed and no additional complaints, except as documented Cardiovascular: Cardiovascular: Reports no additional cardiovascular complaints, Denies chest pain and Denies dyspnea Respiratory: Respiratory: Reports as per HPI, Denies chest congestion, Reports cough, Denies dyspnea and Reports wheezing Gastrointestinal: Gastrointestinal: Reports no additional gastrointestinal complaints, Denies abdominal pain, Denies nausea and Denies vomiting Musculoskeletal: Musculoskeletal: Reports no additional musculoskeletal complaints Integumentary/Breasts: Skin/Breast: Reports system reviewed and no additional complaints, except as docu Neurologic: Reports system reviewed and no additional complaints, except as documented Psychiatric: Psychiatric: Reports no additional psychiatric complaints Allergic/Immunologic: Allergic/Immunologic: Reports no additional allergic/immunologic complaints [facility] Past Medical History Medical History (Updated 01/02/24 @ 08:38 by Digna Whitfield APRN) History of asthma Surgical History Surgical History (Updated 01/02/24 @ 08:38 by Digna Whitfield APRN) H/O dilation and curettage H/O tubal ligation H/O: hysterectomy 11/2023 History of sleeve gastrectomy 2019 Hx of hemorrhoidectomy hemorrhoid banding on 04/08/22 Family History Family History Other Hypertension Kidney disease Social History Social History Smoking status: Never smoker Alcohol intake: current Alcohol use details: Socially Substance use: never Lack of Transportation: No Lack of Food: Never True Current Housing: I Have Housing Concerned About Future Housing: No Difficulty Paying Gas/Electric Bills: No Difficulty Paying for Meds: No Currently Unemployed: No Education: Trade/Vocational Certificate Difficulty w/ Childcare or Family Care: No Living arrangements: with family Occupation/Education: occupation Additional occupation/education comments: [employer] Gender identity (if verbalized by the patient): Female Spiritual care concerns: No Comments At the time of my signature, I reviewed and agree with the nursing past medical, surgical, social, and family history. There is no relevant family history pertinent to the patient complaint. Exam Const: General: cooperative, healthy appearing, comfortable, no acute distress, well developed, alert and well nourished Nutritional Appearance: well nourished Orientation/consciousness: patient oriented x3 Limitations: no limitations HENMT: Head: normal to inspection Ears: hearing grossly normal bilaterally, external ears normal, TM's normal bilaterally, EAC's normal, mastoids normal and no periauricular adenopathy Face/Nose/Sinus: Normal external nose present, Normal nares present, Normal nasal mucous membranes and turbinates present, normal facial ex
[2024-01-02 08:20] VITALS: BP 101/65; PULSE 85; RESP 16; TEMP 37.2; O2SAT 98
== END 2024-01-02 08:44 | disposition home or self-care (01) ==
PROVIDERS: Emergency Provider Nurse Practitioner
DX: R05.1 Acute cough (principal); J45.909 Unspecified asthma, uncomplicated
CPT/HCPCS: 99213; G0463

== ENCOUNTER 2024-03-27 00:30 | Day surgery (SDC) | payer OTHER, SELFPAY ==
[2024-03-22 09:27] VITALS: BMI 25.0
--- NOTE | 2024-03-22 09:28 | PC.NURSE ---
Addendum entered by Douglas Pardo RN 03/22/24 15:18: Brandie also told to hold Multivitamin starting 03-24-2024 Original Note: Report to the Outpatient Waiting Room, entrance under the green pavilion located off [facility], at time _0730_ on date _[id number]_. Planned Procedure Time: _0930_. Time changes happen often and if your time is changed the preop area will call you the afternoon before. - You and your visitor will be asked to self-screen and do not enter if you have any COVID symptoms. - A mask is optional within the hospital at this time. - No food or drink from midnight until time of surgery. Patient says has instructions from Dr Julian's office that says only clear liquids 24 hours before surgery. Understands to stop drinking at midnight. Take the following medications with a SIP of water the morning of surgery: ____Ok to use inhaler or nebulizer if needed. DO NOT STOP ANY OF YOUR OTHER PRESCRIPTION MEDICATIONS PRIOR TO SURGERY ?EXCEPT THE FOLLOWING Medications to discontinue per physician Please check with Dr Julian's office if OK to use Naproxen. Date to take last dose Please no make-up, nail luxembourgish, hairspray, perfume, deodorant, or body powder the day of surgery. No jewelry (including any body piercings) or valuables the day of surgery, leave them at home. Please take a shower or bath the night before, or the morning of, surgery with an antibacterial soap. Wear comfortable, loose fitting clothing. - Jewelry must be removed prior to entering the operating room. Rings and piercings that are not removed may be cut off. - The hospital will not accept responsibility for valuables. - Please leave all valuables, including medications, at home the day of surgery. If you are going home after surgery, a licensed services delivery driver must drive you home. - NO public transportation without another adult if you receive anesthesia. - We recommend that an adult stay with you for 24 hours following discharge. - We also recommend that you do not drive, make important decision, drink alcoholic beverages, or take any drugs that were not prescribed by your health care provider for at least 24 hours after your discharge time. Follow any additional instructions given to you from your surgeon. If you or anyone in your household have experienced Covid symptoms in the past week, please notify your surgeon or the nurse liaison at the phone number below for possible testing. Telephone instructions given to __Brandie__and asked if any additional questions and then verbalized understanding. Patient advised to call surgeon office or pre surgery nurse liaison [phone] if any additional questions.
[2024-03-27] VITALS (9 sets, daily range): BP systolic 110–122; BP diastolic 68–76; PULSE 74–87; RESP 12–20; TEMP 35.8–36.7; O2SAT 100
[2024-03-27] MEDS: LACTATED RINGERS 1,000 ML 30 ML IV CONT ×2 (08:30→11:04)
[2024-03-27] MEDS: ACETAMINOPHEN 500 MG TABLET 1000 MG PO (08:42)
[2024-03-27] MEDS: KETOROLAC 15 MG/ML VIAL (*BKC) IV PUSH ×2 (08:43→10:57)
--- NOTE | 2024-03-27 09:35 | WPDANESEPPF ---
Anes - Initial Pre Proc Eval Procedure: Operation Date: 03/27/24 09:30 Proposed Procedures p Excisional Hemorrhoidectomy, Possible Banding - Ayaz Julian MD Date/Time: 03/27/24 09:35 Surgeon: Ayaz Julian MD Pre Op Diagnosis: Grade III Prolapsing Internal Hemorrhoids Patient Data Age: 34 Gender: F Height: 1.78 m Weight: 79 kg Last Vital Signs Temp 97.7 F 03/27/24 08:15 Pulse 76 03/27/24 08:15 Resp 18 03/27/24 08:15 BP 114/76 03/27/24 08:15 Pulse Ox 100 03/27/24 08:15 O2 Del Method Room Air 03/27/24 08:15 Allergies Allergy/AdvReac Type Severity Reaction Status Date / Time No Known Allergies Allergy Verified 03/27/24 09:12 Home Medications Medication Instructions Recorded Confirmed Type albuterol sulfate 90 mcg/actuation 2 puff inhalation QID PRN 05/16/23 03/22/24 Rx aerosol inhaler shortness of breath or wheezing #6.7 grams inhalational spacing device #1 ea 05/16/23 03/27/24 Rx (Aerochamber MV spacer) albuterol sulfate 2.5 mg/3 mL 2.5 mg inhalation Q6H PRN Dyspnea 03/22/24 03/22/24 History (0.083 %) solution for nebulization multivitamin 1 tablet PO DAILY 03/22/24 03/27/24 History naproxen 375 mg tablet 375 mg PO BID PRN Pain 03/22/24 03/27/24 History Patient hx anesthesia problems: post op nausea/vomiting and other (prolonged awakening) Family hx anesthesia problems: none Results Review: All pre-operative results and documents have been reviewed as part of the pre-operative evaluation. [facility] Past Medical History Medical History History of asthma Surgical History Surgical History H/O dilation and curettage H/O tubal ligation H/O: hysterectomy 11/2023 History of sleeve gastrectomy 2019 Hx of hemorrhoidectomy hemorrhoid banding on 04/08/22 Family History Family History Other Hypertension Kidney disease Social History Social History Smoking status: Never smoker Alcohol intake: current Alcohol use details: Socially Substance use: never Lack of Transportation: No Lack of Food: Never True Current Housing: I Have Housing Concerned About Future Housing: No Difficulty Paying Gas/Electric Bills: No Difficulty Paying for Meds: No Currently Unemployed: No Education: Trade/Vocational Certificate Difficulty w/ Childcare or Family Care: No Living arrangements: with family Occupation/Education: occupation Additional occupation/education comments: [employer] Gender identity (if verbalized by the patient): Female Spiritual care concerns: No Anes - Eval Final PreProcedure Day of Procedure 03/27/24 09:35 Patient weight: normal Heart: regular rate and rhythm Lungs: clear to auscultation Airway: Mallampati scale class II Neurological: alert and oriented Last oral intake: >/= 8 hours ASA classification: II Emergent: no Anesthetic plan: proceed Anesthesia type and monitoring: general ETT and standard monitoring Results Review: All pre-operative results and documents have been reviewed as part of the pre-operative evaluation. Informed Consent: The patient's anesthetic plan and its attendant risks and benefits were discussed with the patient/family/POA. Questions were solicited and answers provided to the satisfaction of the patient/family/POA.
--- NOTE | 2024-03-27 09:45 | WPDHPUPDATE1 ---
History and Physical Update Update Date/Time: 03/27/24 09:45 History and Physical has been reviewed, including an updated exam of the patient. There are NO changes in the patient's condition. Risks, benefits, and alternatives have been discussed and questions answered. Patient agrees to proceed with procedure.
[2024-03-27] MEDS: ceFAZolin 2 GM/D5W 50 ML 2 GM/50 ML BAG IVPB (10:06)
[2024-03-27] MEDS: LIDO 1%/EPINEPHRINE 1:100,000 50 ML VIAL 30 ML INFILTRATE (10:37)
[2024-03-27] MEDS: SCOPOLAMINE 1 MG PATCH 1 PATCH TRANSDERM (11:04)
--- NOTE | 2024-03-27 11:16 | W.PM.PROC2 ---
Procedure Note - Detailed Date of Procedure 03/27/24 Pre-op Diagnosis Grade III Prolapsing Internal Hemorrhoids Post-op Diagnosis Same Procedure Performed Anal rectal evaluation under anesthesia and excisional hemorrhoidectomy x1 Surgeon Ayaz Julian MD [employer] [place], HOME SCHOOL COORDINATOR Anesthesia General Indications Patient is a 34-year-old female who complained of having recurrent painful and irritated prolapsing hemorrhoids. She had a prior banding of internal hemorrhoids by and has recurrent hemorrhoids. She presents now for a excisional hemorrhoidectomy. Findings Patient has single large grade 3 prolapsing internal hemorrhoid column at the 6 o'clock position with the patient prone anteriorly. No thrombosis of the hemorrhoid was seen. No other significant residual recurrent hemorrhoids. Circumferential evaluation of the anal canal and distal rectum revealed no masses or polyps. Description of Procedure After informed consent was obtained patient brought to the operating room she is placed under general endotracheal anesthesia on the gurney then turned in the prone nicola-knife position on operating table. The buttocks were then taped apart to expose the perianal region and then was prepped and draped usual sterile fashion. A time-out was then performed correctly identifying the patient as well as procedure to be performed. She was given some perioperative IV antibiotics. I then started procedure by dilating the anal sphincters manually. Once this was done I then placed an anal speculum into the anal canal and then performed a circumferential evaluation of the distal rectum and anal canal. There were no masses or polyps or lesions in the distal rectum or anal canal. At the 6 o'clock position with the patient prone anteriorly there was a large recurrent prolapsing but non thrombosed grade 3 internal hemorrhoid. No other significant hemorrhoids were seen. I then injected 1% lidocaine mixed with 0.5% Marcaine with some epinephrine underneath the hemorrhoid for local anesthetic effect. The hemorrhoids then held with Allis clamp and then a scalp was then used to incised and the tissue on either side of the hemorrhoid in a hanna configuration out to the perianal skin. The redundant perianal skin and hemorrhoid was then excised off utilizing electrocautery. Great care was taken to identify the internal and external sphincter muscle fibers and I preserved these without any injury. The hemorrhoid was then passed off table sent to pathology for examination labeled hemorrhoid 6:00. I then achieved hemostasis in the incision using electrocautery. A 2-0 chromic suture was then placed at the apex of the hemorrhoid and then it was run in a locking fashion out to the anal verge. At this point and transition to using a 3-0 Vicryl suture placed in a running and locking fashion to approximate the edges of the perianal skin. There is then cleaned and then 1% lidocaine mixed with 0.5% Marcaine was injected around the anal opening for perianal block. Bilateral pudendal nerve blocks were then placed utilize the same local anesthetic mixture. Reason cleaned and then fluffed 4x4 gauze ABD pads and disposable underwear was used for final dressing. The patient tolerated the procedure well no complications. All sponges, needles, and instrument counts were correct at the end procedure. EBL was _20__cc. The patient was awakened and taken to recovery in stable and satisfactory condition. Implants None Estimated Blood Loss 20 Drains No Packing Yes (Gelfoam packing cover with 1% lidocaine jelly anal canal) Pathology Yes (Grade 3 internal hemorrhoid without thrombosis to pathology) Complications No immediate complications Condition Stable Disposition PACU [facility] Billing Surgery - Charge Forward: Surgery Billing
--- NOTE | 2024-03-27 11:28 | SUR.PHASEI ---
1127: Simple mask removed.
--- NOTE | 2024-03-27 11:32 | SUR.PHASEI ---
Dr. Rivera said patient could use inhaler in PACU.
== END 2024-03-27 13:20 | disposition home or self-care (01) ==
PROVIDERS: Visit Provider Surgery
PROC: (CPT 46255; principal; 2024-03-27 09:30)
DX: K64.2 Third degree hemorrhoids (principal); K64.5 Perianal venous thrombosis; J45.909 Unspecified asthma, uncomplicated; Z98.890 Other specified postprocedural states; Z98.84 Bariatric surgery status; Z98.51 Tubal ligation status; Z79.51 Long term (current) use of inhaled steroids
CPT/HCPCS: 46255; 88304; A9270; J0330; J0690; J1100; J1885; J2250; J2405; J2704; J3010; J7120

== ENCOUNTER 2024-09-02 14:11 | Emergency (ER) | payer OTHER, SELFPAY ==
--- NOTE | 2024-09-02 14:13 | ED_ITS ---
HPI - URI/Sore Throat General Chief Complaint: Upper Respiratory Infection Stated Complaint: Sore Throat Time Seen by Provider: 09/02/24 14:29 Source: patient and RN notes reviewed Mode of arrival: ambulatory Limitations: no limitations History of Present Illness HPI Narrative: 34-year-old female presents concern for 2 day history of nasal congestion, postnasal drip, drainage, sore throat, headaches and fatigue. She denies fever. MD elicited complaint: sore throat and nasal congestion Related Data Home Medications ?Medication ?Instructions ?Recorded ?Confirmed ?Last Taken ?Type albuterol sulfate 2.5 mg/3 mL 2.5 mg inhalation Q6H PRN Dyspnea 03/22/24 06/07/24 Unknown History (0.083 %) solution for nebulization multivitamin 1 tablet PO DAILY 03/22/24 06/07/24 Unknown History Allergies Allergy/AdvReac Type Severity Reaction Status Date / Time No Known Allergies Allergy Verified 09/02/24 14:14 Review of Systems Review of Systems: CONSTITUTIONAL: Denies malaise, chills, sweats, or fever. EYES: Denies visual changes, redness, or discharge. ENT: Reports rhinorrhea, congestion, and sore throat. CARDIOVASCULAR: Denies chest pain, palpitations, or edema. RESPIRATORY: Reports cough. Denies dyspnea. GASTROINTESTINAL: Denies abdominal pain, nausea, vomiting, diarrhea SKIN: Denies rash or itching. MUSCULOSKELETAL: Denies myalgia. NEUROLOGIC: Reports headache. All systems reviewed & are unremarkable except as noted in HPI and below PMFSH Past Medical History Medical History History of asthma Surgical History Surgical History H/O dilation and curettage H/O tubal ligation H/O: hysterectomy 11/2023 History of sleeve gastrectomy 2019 Hx of hemorrhoidectomy hemorrhoid banding on 04/08/22 Status post hemorrhoidectomy Anal rectal evaluation under anesthesia and excisional hemorrhoidectomy x1 03/27/24 Family History Family History Other Hypertension Kidney disease Social History Social History Smoking status: Never smoker Alcohol intake: current Alcohol use details: Socially Substance use: never Do You Feel Safe in your Home?: Yes Lack of Transportation: No Lack of Food: Never True Current Housing: I Have Housing Concerned About Future Housing: No Difficulty Paying Gas/Electric Bills: No Difficulty Paying for Meds: No Currently Unemployed: No Education: Trade/Vocational Certificate Difficulty w/ Childcare or Family Care: No Living arrangements: with family 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 There is no relevant family history pertinent to the presenting complaint Exam Narrative: GENERAL: Well-appearing, well-nourished, and in no acute distress. HEAD: Normocephalic EYES: PERRLA, conjunctivae clear ENT: Nares clear, turbinates edematous and erythematous, clear discharge. Mucous membranes moist. TM pearly jesus with dull light reflex bilaterally; no tragal tenderness. Oropharynx not erythematous without lesions. Tonsils not enlarged and without exudate, no drooling, no hoarseness, no trismus, uvula midline. NECK: Supple. No lymphadenopathy CHEST: Clear to auscultation, breath sounds equal. No wheezing, rhonchi, rales, or stridor. No respiratory distress, speaks in full sentences. HEART: Regular rate and rhythm. No murmur heard. SKIN: Warm, dry, no rash. NEURO: Alert and oriented x3. PSYCH: Normal mood and affect Course Course Emergency Course: Patient is aware of diagnosis, understands and agrees to treatment plan. Anticipatory guidance given. Patient agrees to follow-up as directed and is aware of reasons to seek care at the emergency department. Portions of this record may have been created with voice recognition software Level of Care: Express Care Visit Vital Signs Vital signs: Reviewed. MDM - URI/Sore Throat MDM Narrative Medical decision making narrative: Differential diagnosis considered: Meier virus, strep pharyngitis, allergic rhinitis, upper respiratory tract infection, sinusitis, rhinosinusitis, nasopharyngitis. viral pharyngitis, otitis media, otitis externa, pneumonia, bronchitis, viral cough syndrome, viral syndrome, and influenza. Exam findings show no acute concerns or changes; patient is non-toxic appearing and is in no d istress. Patient is appropriate for outpatient treatment and follow-up. Lab Data Attestation: I reviewed the patient's lab results. Critical Care Time Critical Care Time Critical Care Time: No Discharge Plan Discharge Clinical Impression: Upper respiratory infection Patient Disposition: Home, Self-Care Condition: Stable Instructions: Upper Respiratory Infection (ED) Additional Instructions: Your rapid strep swab was negative today at [facility]. A throat culture will be sent to the laboratory for further testing. If the test is positive, you will receive a phone call within 48 hours and an appropriate antibiotic will be initiated at that time. Your symptoms are likely due to a viral illness, which is not treated with antibiotics. Viral symptoms can be present for up to a few weeks. -Alternate Tylenol and Motrin per package directions for fever or pain. -Antihistamine medication such as Benadryl at night and Zyrtec during the day can help improve symptoms. -Eat and drink things that are easy to swallow, like tea or soup, or popsicles to suck on. -Oral rinses such as: Salt water gargles and/or may use topical anesthetic (eg. Chloraseptic spray) or lozenges to relieve dryness or throat pain). -Frequent hand washing or hand facility manager is one of the best ways to prevent spread of infection. -Follow up with primary care provider in 2-3 days if condition is not improving; or seek ER visit if you have trouble breathing, cannot drink enough fluids, have muffled voice, difficulty opening your mouth, or severe swelling. Patient Language: Irish Prescriptions: New ipratropium bromide 21 mcg (0.03 %) spray,non-aerosol 2 spray NASAL TID PRN (Reason: nasal drainage) Qty: 30 0RF Rx Instructions: administer into each nostril methylprednisolone [Medrol (Eugenio)] 4 mg tablets,dose pack See Rx Instructions .ROUTE .COMPLEX Qty: 21 0RF Rx Instructions: orally per package directions No Action (DME) Aerochamber MV Spacer See Rx Instructions .Route Qty: 1 0RF Rx Instructions: As directed albuterol sulfate 90 mcg/actuation HFA aerosol inhaler 2 puff inhalation QID PRN (Reason: shortness of breath or wheezing) Qty: 6.7 0RF hydrocortisone [Anusol-HC] 2.5 % cream with perineal applicator 1 applic RECTAL BID PRN (Reason: hemorrhoids) Qty: 30 1RF multivitamin Tablet 1 tablet PO DAILY albuterol sulfate 2.5 mg /3 mL (0.083 %) solution for nebulization 2.5 mg inhalation Q6H PRN (Reason: Dyspnea) Follow-up/Referrals: PHYSICIAN,HATCHERY LABORER [Primary Care Provider] - Time of Disposition: 14:38
[2024-09-02 14:18] VITALS: BP 115/58; PULSE 79; RESP 16; TEMP 37.1; O2SAT 100
[2024-09-02 14:34] LABS: EDSTREPNEGPOS1 Negative (Negative)
== END 2024-09-02 14:45 | disposition home or self-care (01) ==
PROVIDERS: Emergency Provider Nurse Practitioner
DX: J06.9 Acute upper respiratory infection, unspecified (principal)
CPT/HCPCS: 87081; 87880; 99213; G0463

== ENCOUNTER 2024-11-29 15:56 | Emergency (ER) | payer OTHER, SELFPAY ==
[2024-11-29 16:00] VITALS: BP 103/73; PULSE 69; RESP 19; TEMP 36.8; O2SAT 100
[2024-11-29 16:25] LABS: EDSTREPNEGPOS1 Negative (Negative)
--- NOTE | 2024-11-29 16:41 | ED.URI ---
HPI - URI/Sore Throat General Chief Complaint: Upper Respiratory Infection Stated Complaint: Sinus Related Data Home Medications ?Medication ?Instructions ?Recorded ?Confirmed ?Last Taken ?Type albuterol sulfate 2.5 mg/3 mL 2.5 mg inhalation Q6H PRN Dyspnea 03/22/24 06/07/24 Unknown History (0.083 %) solution for nebulization multivitamin 1 tablet PO DAILY 03/22/24 06/07/24 Unknown History Allergies Allergy/AdvReac Type Severity Reaction Status Date / Time No Known Allergies Allergy Verified 11/29/24 15:58 [facility] Past Medical History Medical History History of asthma Surgical History Surgical History H/O dilation and curettage H/O tubal ligation H/O: hysterectomy 11/2023 History of sleeve gastrectomy 2019 Hx of hemorrhoidectomy hemorrhoid banding on 04/08/22 Status post hemorrhoidectomy Anal rectal evaluation under anesthesia and excisional hemorrhoidectomy x1 03/27/24 Family History Family History Other Hypertension Kidney disease Social History Social History Smoking status: Never smoker Alcohol intake: current Alcohol use details: Socially Substance use: never Do You Feel Safe in your Home?: Yes Lack of Transportation: No Lack of Food: Never True Current Housing: I Have Housing Concerned About Future Housing: No Difficulty Paying Gas/Electric Bills: No Difficulty Paying for Meds: No Currently Unemployed: No Education: Trade/Vocational Certificate Difficulty w/ Childcare or Family Care: No Living arrangements: with family 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 Gender identity (if verbalized by the patient): Female Spiritual care concerns: No Course Vital Signs Vital signs: Vital Signs Temperature 98.2 F 11/29/24 16:00 Pulse Rate 69 11/29/24 16:00 Respiratory Rate 19 11/29/24 16:00 Blood Pressure 103/73 11/29/24 16:00 Pulse Oximetry 100 11/29/24 16:00 Oxygen Delivery Room Air 11/29/24 16:00 Temperature 98.2 F 11/29/24 16:00 Pulse Rate 69 11/29/24 16:00 Respiratory Rate 19 11/29/24 16:00 Blood Pressure 103/73 11/29/24 16:00 Pulse Oximetry 100 11/29/24 16:00 Oxygen Delivery Room Air 11/29/24 16:00 MDM - URI/Sore Throat Lab Data Labs: Lab Results 11/29/24 Range/Units 16:10 POC Grp A Strep Screen Negative (Negative) Discharge Plan Discharge Patient Language: Taiwanese Prescriptions: No Action (DME) Aerochamber MV Spacer See Rx Instructions .Route Qty: 1 0RF Rx Instructions: As directed albuterol sulfate 90 mcg/actuation HFA aerosol inhaler 2 puff inhalation QID PRN (Reason: shortness of breath or wheezing) Qty: 6.7 0RF ipratropium bromide 21 mcg (0.03 %) spray,non-aerosol 2 spray NASAL TID PRN (Reason: nasal drainage) Qty: 30 0RF Rx Instructions: administer into each nostril hydrocortisone [Anusol-HC] 2.5 % cream with perineal applicator 1 applic RECTAL BID PRN (Reason: hemorrhoids) Qty: 30 1RF multivitamin Tablet 1 tablet PO DAILY albuterol sulfate 2.5 mg /3 mL (0.083 %) solution for nebulization 2.5 mg inhalation Q6H PRN (Reason: Dyspnea) Follow-up/Referrals: PHYSICIAN,CELL BUILDER [Primary Care Provider] -
--- NOTE | 2024-11-29 16:46 | ED_ITS ---
HPI - URI/Sore Throat General Chief Complaint: Upper Respiratory Infection Stated Complaint: Sinus Source: patient and RN notes reviewed Mode of arrival: ambulatory Limitations: no limitations History of Present Illness HPI Narrative: 34-year-old female presents to the [facility] complaining of upper respiratory symptoms for the last 4 days. She reports having a sore throat, voice hoarseness, and ear fullness. She denies any cough, fever, congestion, difficulty breathing, or chest pain. She said she used an old prescription of the Z-Eugenio from someone to see if it would help get rid of her symptoms. Her s ymptoms continue to persist she has been using [id number] treatment to help manage her symptoms. Related Data Home Medications ?Medication ?Instructions ?Recorded ?Confirmed ?Last Taken ?Type albuterol sulfate 2.5 mg/3 mL 2.5 mg inhalation Q6H PRN Dyspnea 03/22/24 06/07/24 Unknown History (0.083 %) solution for nebulization multivitamin 1 tablet PO DAILY 03/22/24 06/07/24 Unknown History Allergies Allergy/AdvReac Type Severity Reaction Status Date / Time No Known Allergies Allergy Verified 11/29/24 15:58 Review of Systems Review of Systems: CONSTITUTIONAL: Denies fever, chills, or sweats. EYES: Denies visual changes, redness, or discharge. ENT: Denies rhinorrhea, congestion, or otalgia. Positive for sore throat, voice hoarseness, and ear fullness CARDIOVASCULAR: Denies chest pain, palpitations, or edema. RESPIRATORY: Denies cough or dyspnea. GASTROINTESTINAL: Denies abdominal pain, nausea, vomiting, or diarrhea. GENITOURINARY: Denies dysuria or hematuria. SKIN: Denies rash or itching. MUSCULOSKELETAL: Denies back pain, joint pain, or myalgia. NEUROLOGIC: Denies headache, numbness, or weakness. PSYCHIATRIC: Denies anxiety or depression. All other systems reviewed are negative, except as documented in HPI. [facility] Past Medical History Medical History History of asthma Surgical History Surgical History Status post hemorrhoidectomy Anal rectal evaluation under anesthesia and excisional hemorrhoidectomy x1 03/27/24 H/O: hysterectomy 11/2023 Hx of hemorrhoidectomy hemorrhoid banding on 04/08/22 History of sleeve gastrectomy 2019 H/O tubal ligation H/O dilation and curettage Family History Family History Other Hypertension Kidney disease Social History Social History Smoking status: Never smoker Alcohol intake: current Alcohol use details: Socially Substance use: never Do You Feel Safe in your Home?: Yes Lack of Transportation: No Lack of Food: Never True Current Housing: I Have Housing Concerned About Future Housing: No Difficulty Paying Gas/Electric Bills: No Difficulty Paying for Meds: No Currently Unemployed: No Education: Trade/Vocational Certificate Difficulty w/ Childcare or Family Care: No Living arrangements: with family 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 There is no relevant family history pertinent to the patient complaint. Exam Narrative: GENERAL: This is a well-nourished, well-developed adult, in no apparent distress. They are non ill-appearing, nontoxic appearing. HEAD: normocephalic, atraumatic. EYES: Sclera clear/white. Vision is grossly intact. EARS: External ears normal, auditory canals clear and without drainage, TMs normal without perforation. Hearing grossly intact. NOSE: External nose normal with no obvious nasal discharge, nasal turbinates with redness, no rhinorrhea. THROAT: Mucous membranes moist, posterior pharynx mildly injected with postnasal drip present. Uvula midline NECK: Neck supple, non-tender without lymphadenopathy, masses or thyromegaly. CARDIOVASCULAR: Regular rate and rhythm without murmurs, gallops, or rubs. RESPIRATORY: Clear to auscultation. Breath sounds equal bilaterally. No wheezes, rales, or rhonchi. SKIN: warm, Dry, intact with no suspicious lesions or rash, good texture and turgor. NEURO: awake, alert, and oriented to person, place and time. There were no obvious focal neurologic abnormalities. EXTREMITIES: No joint tenderness, effusion, or edema noted. Course Course Level of Care: Express Care Visit Vital Signs Vital signs: Vital Signs Temperature 98.2 F 11/29/24 16:00 Pulse Rate 69 11/29/24 16:00 Respiratory Rate 19 11/29/24 16:00 Blood Pressure 103/73 11/29/24 16:00 Pulse Oximetry 100 11/29/24 16:00 Oxygen Delivery Room Air 11/29/24 16:00 Temperature 98.2 F 11/29/24 16:00 Pulse Rate 69 11/29/24 16:00 Respiratory Rate 19 11/29/24 16:00 Blood Pressure 103/73 11/29/24 16:00 Pulse Oximetry 100 11/29/24 16:00 Oxygen Delivery Room Air 11/29/24 16:00 Reviewed MDM - URI/Sore Throat MDM Narrative Medical decision making narrative: Rapid strep was negative, a throat culture will be sent out. If the cultures positive she will be contacted and prescribed antibiotics. Symptoms are consistent with viral syndrome. She declined additional viral swabs. Discussed physical exam findings. Advised supportive measures and signs/symptoms to go to the ER. Pt is appropriate for outpt treatment and f/u. Differential Diagnosis Differential diagnosis: Likely upper respiratory infection, sinusitis, viral infection and pharyngitis Lab Data Attestation: I reviewed the patient's lab results. Labs: Lab Results 11/29/24 Range/Units 16:10 POC Grp A Strep Screen Negative (Negative) Critical Care Time Critical Care Time Critical Care Time: No Discharge Plan Discharge Clinical Impression: Upper respiratory infection Qualifiers: URI type: unspecified viral URI Qualified Code(s): J06.9 - Acute upper respiratory infection, unspecified Patient Disposition: Home, Self-Care Condition: Stable Instructions: Upper Respiratory Infection (DC) Additional Instructions: Your rapid strep swab was negative today at [facility]. You will be notified in a few days if the culture comes back positive for strep, and appropriate antibiotics will be called in for you at that time. Your symptoms are likely due to a viral illness, which is not treated with antibiotics. Viral symptoms can be present for up to 10-14 days. Take Tylenol or ibuprofen for fever or pain. Rest and stay hydrated. You may use Flonase as needed for congestion. You may do salt water gargle rinses for your sore throat or use throat lozenges as directed. Follow up with your PCP in 7 days if symptoms are not improving. Go to the ER immediately if you difficulty breathing or swallowing Patient Language: Maori Prescriptions: No Action (DME) Aerochamber MV Spacer See Rx Instructions .Route Qty: 1 0RF Rx Instructions: As directed albuterol sulfate 90 mcg/actuation HFA aerosol inhaler 2 puff inhalation QID PRN (Reason: shortness of breath or wheezing) Qty: 6.7 0RF ipratropium bromide 21 mcg (0.03 %) spray,non-aerosol 2 spray NASAL TID PRN (Reason: nasal drainage) Qty: 30 0RF Rx Instructions: administer into each nostril hydrocortisone [Anusol-HC] 2.5 % cream with perineal applicator 1 applic RECTAL BID PRN (Reason: hemorrhoids) Qty: 30 1RF multivitamin Tablet 1 tablet PO DAILY albuterol sulfate 2.5 mg /3 mL (0.083 %) solution for nebulization 2.5 mg inhalation Q6H PRN (Reason: Dyspnea) Follow-up/Referrals: PHYSICIAN,PSYCH SPECIALIST [Primary Care Provider] - Time of Disposition: 16:43
== END 2024-11-29 16:50 | disposition home or self-care (01) ==
DX: J06.9 Acute upper respiratory infection, unspecified (principal); J45.909 Unspecified asthma, uncomplicated
CPT/HCPCS: 87081; 87880; 99213; G0463

== ENCOUNTER 2024-12-23 08:11 | Emergency (ER) | payer OTHER, SELFPAY ==
[2024-12-23 08:15] VITALS: BP 102/63; PULSE 74; RESP 20; TEMP 36.8; O2SAT 100
[2024-12-23 08:20] VITALS: PULSE 74; RESP 20; O2SAT 100
--- NOTE | 2024-12-23 08:24 | ED_ITS ---
HPI - URI/Sore Throat General Chief Complaint: Upper Respiratory Infection Stated Complaint: sinus issue not any better from last visit Time Seen by Provider: 12/23/24 08:26 Source: patient, RN notes reviewed and old records reviewed Mode of arrival: ambulatory Limitations: no limitations History of Present Illness HPI Narrative: 34 year old female who presents to [facility] care with almost one month history of sinus congestion and drainage with some cough and initially did have sore throat. Patient reports that she was initially seen in clinic on the 29 of November with negative strep and was told to take OTC medication. Patient reports that she has been taking daily Zyrtec and using Nasacort nasal spray. Patient reports no recent fevers chills or sweats, denies any ear pain or pressure. Patient does have asthma and has some mild cough and uses inhalers as prescribed. reports facial pressure. MD elicited complaint: cough, rhinorrhea, nasal congestion and sinus pain Pertinent past history: asthma and seasonal allergies Onset (ago): month(s) (almost a month) Consistency: constant Severity: moderate Able to tolerate fluids by mouth: Yes Treatments prior to arrival: other (Zyrtec and Nasacort nasal spray, inhalers as prescribed) Related Data Home Medications ?Medication ?Instructions ?Recorded ?Confirmed ?Last Taken ?Type albuterol sulfate 2.5 mg/3 mL 2.5 mg inhalation Q6H PRN Dyspnea 03/22/24 06/07/24 Unknown History (0.083 %) solution for nebulization multivitamin 1 tablet PO DAILY 03/22/24 06/07/24 Unknown History Allergies Allergy/AdvReac Type Severity Reaction Status Date / Time No Known Allergies Allergy Verified 12/23/24 08:18 Review of Systems Review of Systems: CONSTITUTIONAL: Reports malaise, no recent chills, sweats, or fever. EYES: Denies visual changes, redness, or discharge. ENT: Reports rhinorrhea, congestion, sinus pain,no otalgia and no sore throat. CARDIOVASCULAR: Denies chest pain, palpitations, or edema. RESPIRATORY: Reports cough.? Denies any acute dyspnea. GASTROINTESTINAL: Denies abdominal pain, nausea, vomiting, diarrhea SKIN: Denies rash or itching. MUSCULOSKELETAL: Denies myalgia. NEUROLOGIC: Denies headache. All systems reviewed & are unremarkable except as noted in HPI and below PMFSH Past Medical History Medical History Seasonal allergies History of asthma Surgical History Surgical History Status post hemorrhoidectomy Anal rectal evaluation under anesthesia and excisional hemorrhoidectomy x1 03/27/24 H/O: hysterectomy 11/2023 Hx of hemorrhoidectomy hemorrhoid banding on 04/08/22 History of sleeve gastrectomy 2018 H/O tubal ligation H/O dilation and curettage Family History Family History Other Hypertension Kidney disease Social History Social History Smoking status: Never smoker Alcohol intake: current Alcohol use details: Socially Substance use: never Do You Feel Safe in your Home?: Yes Lack of Transportation: No Lack of Food: Never True Current Housing: I Have Housing Concerned About Future Housing: No Difficulty Paying Gas/Electric Bills: No Difficulty Paying for Meds: No Currently Unemployed: No Education: Trade/Vocational Certificate Difficulty w/ Childcare or Family Care: No Living arrangements: with family 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 There is no relevant family history pertinent to the presenting complaint Exam Narrative: GENERAL: Well-appearing, well-nourished, and in no acute distress. HEAD: Normocephalic EYES: PERRLA, conjunctivae clear ENT: Nares clear, turbinates edematous and erythematous, clear to light yellow drainage, sinus pressure . Mucous membranes moist. TM pearly jesus with dull light reflex bilaterally; no tragal tenderness. Oropharynx erythematous without lesions. Tonsils not enlarged and without exudate, no drooling, no hoarseness, no trismus, uvula midline.post nasal drainage NECK: Supple. No lymphadenopathy CHEST: faint wheezes on auscultation, breath sounds equal. + wheezing,no rhonchi, rales, or stridor. No respiratory distress, speaks in full sentences. dry cough SAO2 100% on room air HEART: Regular rate and rhythm. No murmur heard. SKIN: Warm, dry, no rash. NEURO: Alert and oriented x3. PSYCH: Normal mood and affect Course Course Emergency Course: Patient is aware of diagnosis, understands and agrees to treatment plan.? Anticipatory guidance given.? Patient agrees to follow-up as directed and is a sigala of reasons to seek care at the emergency department. Portions of this record may have been created with voice recognition software Level of Care: Express Care Visit Vital Signs Vital signs: Vital Signs Temperature 36.8 C 12/23/24 08:15 Pulse Rate 74 12/23/24 08:15 Respiratory Rate 20 12/23/24 08:15 Blood Pressure 102/63 12/23/24 08:15 Pulse Oximetry 100 12/23/24 08:15 Oxygen Delivery Room Air 12/23/24 08:15 Temperature 36.8 C 12/23/24 08:15 Pulse Rate 74 12/23/24 08:15 Respiratory Rate 20 12/23/24 08:15 Blood Pressure 102/63 12/23/24 08:15 Pulse Oximetry 100 12/23/24 08:15 Oxygen Delivery Room Air 12/23/24 08:15 Reviewed MDM - URI/Sore Throat MDM Narrative Medical decision making narrative: Differential diagnosis considered: Meier virus, strep pharyngitis, allergic rhinitis, upper respiratory tract infection, sinusitis, rhinosinusitis, nasopharyngitis. viral pharyngitis, otitis media, otitis externa, pneumonia, bronchitis, viral cough syndrome, viral syndrome, and influenza.? Exam findings show no acute concerns or changes; patient is non-toxic appearing and is in no distress.? Patient is appropriate for outpatient treatment and follow-up. Differential Diagnosis Differential diagnosis: Likely upper respiratory infection, sinusitis, viral infection, bronchitis and other Medical Records Attestation: I reviewed the patient's medical records. Lab Data Attestation: I reviewed the patient's lab results. Critical Care Time Critical Care Time Critical Care Time: No Discharge Plan Discharge Clinical Impression: Sinusitis Qualifiers: Sinusitis location: pansinusitis Chronicity: acute Recurrence: not specified as recurrent Qualified Code(s): J01.40 - Acute pansinusitis, unspecified Patient Disposition: Home Condition: Stable Instructions: Antibiotic Form, Sinusitis (ED) Additional Instructions: Increase fluids especially juices and water [id number] cough and cold medicine of your choice for your symptoms Zyrtec Claritin or Priscilla daily include plain Sudafed in a.m. and early p.m. Continue your inhaler/nebulizer as directed Continue your nasal spray daily heat to the face 20-30 minutes 4-6 times a day for pain Salt water gargles, throat lozenges or throat sprays as desired Antibiotic as directed--finished the medication If your symptoms persist, change or worsen significantly before you can contact your personal physician then please, without delay, go to the emergency department for further evaluation. Follow-up with PCP in 7-10 days or sooner if needed Patient Language: Chadian Prescriptions: New amoxicillin-pot clavulanate 875-125 mg tablet 1 tablet PO Q12H Qty: 20 0RF Rx Instructions: Take all doses of antibiotic take with food recommend probiotics or back Activia yogurt while on this medication No Action (DME) Aerochamber MV Spacer See Rx Instructions .Route Qty: 1 0RF Rx Instructions: As directed albuterol sulfate 90 mcg/actuation HFA aerosol inhaler 2 puff inhalation QID PRN (Reason: shortness of breath or wheezing) Qty: 6.7 0RF ipratropium bromide 21 mcg (0.03 %) spray,non-aerosol 2 spray NASAL TID PRN (Reason: nasal drainage) Qty: 30 0RF Rx Instructions: administer into each nostril hydrocortisone [Anusol-HC] 2.5 % cream with perineal applicator 1 applic RECTAL BID PRN (Reason: hemorrhoids) Qty: 30 1RF multivitamin Tablet 1 tablet PO DAILY albuterol sulfate 2.5 mg /3 mL (0.083 %) solution for nebulization 2.5 mg inhalation Q6H PRN (Reason: Dyspnea) Follow-up/Referrals: PHYSICIAN,SECONDARY TEACHER [Primary Care Provider] - Time of Disposition: 08:44 Quality [place]pidio Coma Scale Eyes: Open Verbal: Oriented and Alert Motor: Follows Commands [place] Coma Total Score: 15
== END 2024-12-23 08:50 | disposition home or self-care (01) ==
PROVIDERS: Emergency Provider Registered Nurse
DX: J01.40 Acute pansinusitis, unspecified (principal); J45.909 Unspecified asthma, uncomplicated
CPT/HCPCS: 99213; G0463

== ENCOUNTER 2025-03-16 13:35 | Emergency (ER) | payer OTHER, SELFPAY ==
[2025-03-16 13:41] VITALS: BP 118/73; PULSE 90; RESP 16; TEMP 37.2; O2SAT 100
--- NOTE | 2025-03-16 13:42 | ED.FEMALEGU ---
HPI - Female Genitourinary General Chief complaint: Urogenital-Female Stated complaint: urinary irritation Time Seen by Provider: 03/16/25 13:35 Source: patient Mode of arrival: ambulatory Limitations: no limitations History of Present Illness HPI Narrative: Patient is a 35-year-old female who presents with malodorous urine for a few days. Denies any burning with urination, low back pain, fever, chills, nausea, vomiting, diarrhea. Does report intermittent lightheadedness a few days ago but not currently. Also reports a significant other stated her eyes seemed a bit yellow 3 days ago but not currently. Patient reports she was concerned she was dehydrated so she has been drinking liquid IV the last 2 days. States she does not have a PCP and wants know how to get her liver checked. Denies any abdominal pain. MD elicited complaint: dysuria Related Data Home Medications ?Medication ?Instructions ?Recorded ?Confirmed ?Last Taken ?Type cetirizine 10 mg tablet (24Hour 10 mg PO DAILY PRN allergy symptoms 03/16/25 Unknown History Allergy) magnesium 250 mg tablet 250 mg PO DAILY 03/16/25 Unknown History Allergies Allergy/AdvReac Type Severity Reaction Status Date / Time No Known Allergies Allergy Verified 03/16/25 14:03 Review of Systems Review of Systems: All systems reviewed & are unremarkable except as noted in HPI and below Constitutional: Constitutional: Denies chills, Denies fever(s), Denies headache(s), Denies malaise and Denies weakness Eyes: Eyes: Denies change in vision, Denies eye discharge and Denies irritation ENT: Denies otalgia, Denies headache(s), Denies nasal congestion, Denies nasal discharge, Denies sinus pain and Denies sore throat Cardiovascular: Cardiovascular: Denies chest pain, Denies edema, Denies palpitations and Denies dyspnea Respiratory: Respiratory: Denies cough and Denies dyspnea Gastrointestinal: Gastrointestinal: Denies abdominal pain, Denies diarrhea, Denies nausea and Denies vomiting Genitourinary: Genitourinary: Denies hematuria, Denies nocturia, Reports dysuria (Malodorous), Denies flank pain and Denies urinary urgency Musculoskeletal: Musculoskeletal: Denies back pain and Denies numbness Integumentary/Breasts: Skin/Breast: Denies pruritus and Denies rash Neurologic: Denies headache(s), Denies numbness and Denies weakness Psychiatric: Psychiatric: Reports no additional psychiatric complaints Endocrine: Endocrine: Denies palpitations PMFSH Past Medical History Medical History Seasonal allergies History of asthma Surgical History Surgical History Status post hemorrhoidectomy Anal rectal evaluation under anesthesia and excisional hemorrhoidectomy x1 03/27/24 H/O: hysterectomy 11/2023 Hx of hemorrhoidectomy hemorrhoid banding on 04/08/22 History of sleeve gastrectomy 2018 H/O tubal ligation H/O dilation and curettage Family History Family History Other Hypertension Kidney disease Social History Social History Smoking status: Never smoker Alcohol intake: current Alcohol use details: Socially Substance use: never Do You Feel Safe in your Home?: Yes Lack of Transportation: No Lack of Food: Never True Current Housing: I Have Housing Concerned About Future Housing: No Difficulty Paying Gas/Electric Bills: No Difficulty Paying for Meds: No Currently Unemployed: No Education: Trade/Vocational Certificate Difficulty w/ Childcare or Family Care: No Living arrangements: with family 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 There is no relevant family history pertinent to the presenting complaint. Exam Const: General: cooperative, healthy appearing, comfortable, no acute distress and well nourished Nutritional Appearance: well nourished Orientation/consciousness: patient oriented x3 HENMT: Head: normocephalic and atraumatic Ears: external ears normal Face/Nose/Sinus: Normal external nose present, Normal nares present and normal facial exam Face and sinus: normal facial exam Eyes: General: appearance normal, both eyes and all related structures Pupils: Equal, round and reactive pupils present EOM: EOMs intact bilaterally Neck: Neck: normal visual inspection, full ROM and supple Chest: Chest palpation & inspection: normal inspection of the chest Resp: Effort & Inspection: normal respiratory effort and able to speak in complete sentences Cardio: Rate: regular rate Rhythm: regular rhythm GI: Inspection: normal to inspection GI Palp: No abdominal tenderness, Yes Soft to palpation, No Tenderness to palpation present (GI) and No Guarding due to palpation present (GI) : General: Yes no CVA tenderness Back/Spine/Pelvis: Back: no CVA tenderness Skin: General skin exam: normal color and no rashes or lesions noted Neuro: General: patient oriented x3 and moves all extremities Cranial nerves: Yes Equal, round and reactive pupils present Extrem: General: normal to inspection and full ROM Psych: Appearance: grossly normal and well kempt Course Course Emergency Course: Patient is aware of diagnosis, understands and agrees to treatment plan. Anticipatory guidance given. Patient agrees to follow-up as directed and is aware of reasons to seek care at the emergency department. Portions of this record may have been created with voice recognition software Level of Care: Express Care Visit Vital Signs Vital signs: Vital Signs Temperature 37.2 C 03/16/25 13:41 Pulse Rate 90 03/16/25 13:41 Respiratory Rate 16 03/16/25 13:41 Blood Pressure 118/73 03/16/25 13:41 Pulse Oximetry 100 03/16/25 13:41 Oxygen Delivery Room Air 03/16/25 13:41 Temperature 37.2 C 03/16/25 13:41 Pulse Rate 90 03/16/25 13:41 Respiratory Rate 16 03/16/25 13:41 Blood Pressure 118/73 03/16/25 13:41 Pulse Oximetry 100 03/16/25 13:41 Oxygen Delivery Room Air 03/16/25 13:41 Reviewed MDM - Female Genitourinary MDM Narrative Medical decision making narrative: Discussed diet changes(patient states she was eating asparagus and broccoli frequently) with patient and will refer to PCP for additional lab work patient is requesting. Patient had no yellowing of the sclera or abdominal pain concerning for liver inflammation or involvement. Exam findings and UA negative for acute UTI, will send for culture; patient is non-toxic appearing and is in no distress. No CMT, adnexal tenderness, or evidence of pelvic etiology. Patient is appropriate for outpatient treatment and follow-up. Differential Diagnosis Differential diagnosis: Likely urinary tract infection, bacterial vaginosis, trichomoniasis, cervicitis, vaginitis and cystitis Medical Records Attestation: I reviewed the patient's medical records. Lab Data Attestation: I reviewed the patient's lab results. Labs: Lab Results 03/16/25 Range/Units 13:47 POC Urine Color Dark POC Urine Clarity Clear POC Urine pH 6.0 POC Ur Specif [place] 1.025 POC Urine Protein Negative (Negative) POC Ur Glucose (UA) Negative (Negative) POC Urine Ketones Negative (Negative) POC Urine Blood Negative (Negative) POC Urine Nitrite Negative (Negative) POC Urine Bilirubin Negative (Negative) POC Urine Urobilinogen 0.2 POC U Leukocyte Esteras Trace (Negative) Discharge Plan Discharge Clinical Impression: Malodorous urine Patient Disposition: Home Condition: Stable Instructions: Dysuria (ED) Additional Instructions: We will send a urine culture to the lab and call you if any bacteria should grow. Decrease your intake of broccoli and asparagus Continue with increased water intake. Take Tylenol or ibuprofen as needed for pain or fever. Follow-up with primary care provider for urine recheck or see ER visit if condition worsens with high fever, nausea, vomiting, severe back pain Patient Language: Pashto Prescriptions: No Action cetirizine [24Hour Allergy] 10 mg tablet 10 mg PO DAILY PRN (Reason: allergy symptoms) magnesium 250 mg tablet 250 mg PO DAILY (DME) Aerochamber MV Spacer See Rx Instructions .Route Qty: 1 0RF Rx Instructions: As directed Follow-up/Referrals: Jimmy Edwards MD [Physician] - 3 Days (Establish care) Time of Disposition: 14:18
[2025-03-16 14:06] LABS: EDUAAPPEAR Clear; EDUABILI Negative (Negative); EDUABLOOD Negative (Negative); EDUACOLOR1 Dark; EDUAGLUCOSE Negative (Negative); EDUAKETONE Negative (Negative); EDUALEUKO Trace (Negative); EDUANITRATE Negative (Negative); EDUAPH 6.0; EDUAPROTEIN Negative (Negative); EDUASPGRAVITY 1.025; EDUAUROBILI 0.2
== END 2025-03-16 14:24 | disposition home or self-care (01) ==
PROVIDERS: Emergency Provider Nurse Practitioner Family
DX: R82.998 Other abnormal findings in urine (principal); J45.909 Unspecified asthma, uncomplicated; Z98.84 Bariatric surgery status
CPT/HCPCS: 81003; 99213; G0463

== ENCOUNTER 2025-05-24 09:28 | Emergency (ER) | payer OTHER, SELFPAY ==
[2025-05-24 09:48] VITALS: BP 112/64; PULSE 85; RESP 18; TEMP 36.2; O2SAT 100
--- NOTE | 2025-05-24 09:53 | ED.URI ---
HPI - URI/Sore Throat General Chief Complaint: Upper Respiratory Infection Stated Complaint: nasal drainage and irritation Time Seen by Provider: 05/24/25 09:54 Source: patient, RN notes reviewed and old records reviewed Mode of arrival: ambulatory Limitations: no limitations History of Present Illness HPI Narrative: 35-year-old female presents to the [facility] with sneezing and nasal drainage since Wednesday, 2 days ago. Patient reports that she tried calling her primary care provider for an appointment, was told to come to the [facility] to get a zpac. ? Patient reports she does have history of allergies, takes Zyrtec, Flonase, magnesium and uses albuterol. Denies any fevers. States that she took a home COVID test yesterday, reports negative. Denies any other symptoms other than the nasal drainage, facial pressure and sneezing Onset (ago): day(s) (2) Treatments prior to arrival: cold medicine Related Data Home Medications ?Medication ?Instructions ?Recorded ?Confirmed ?Last Taken ?Type cetirizine 10 mg tablet (24Hour 10 mg PO DAILY PRN allergy symptoms 03/16/25 05/24/25 Unknown History Allergy) magnesium 250 mg tablet 250 mg PO DAILY 03/16/25 05/24/25 Unknown History Allergies Allergy/AdvReac Type Severity Reaction Status Date / Time No Known Allergies Allergy Verified 05/24/25 09:49 Review of Systems Review of Systems: All systems reviewed & are unremarkable except as noted in HPI and below Constitutional: Constitutional: Reports no additional constitutional complaints ENT: Reports as per HPI Cardiovascular: Cardiovascular: Reports no additional cardiovascular complaints, Denies chest pain and Denies dyspnea Respiratory: Respiratory: Reports no additional respiratory complaints, Denies chest congestion, Denies cough and Denies dyspnea PMFSH Past Medical History Medical History Encounter for other specified surgical aftercare Onychomycosis Grade III internal hemorrhoids Symptomatic cholelithiasis Seasonal allergies History of asthma Surgical History Surgical History Status post hemorrhoidectomy Anal rectal evaluation under anesthesia and excisional hemorrhoidectomy x1 03/27/24 H/O: hysterectomy 11/2023 Hx of hemorrhoidectomy hemorrhoid banding on 04/08/22 History of sleeve gastrectomy 2018 H/O tubal ligation H/O dilation and curettage Family History Family History Grandparent Asthma Hypertension Other Kidney disease Social History Social History Smoking status: Never smoker Alcohol intake: current Alcohol use details: Socially Substance use: never Do You Feel Safe in your Home?: Yes Lack of Transportation: No Lack of Food: Never True Current Housing: I Have Housing Concerned About Future Housing: No Difficulty Paying Gas/Electric Bills: No Difficulty Paying for Meds: No Currently Unemployed: No Education: Trade/Vocational Certificate Difficulty w/ Childcare or Family Care: No Living arrangements: with family 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 There is no relevant family history pertinent to the patient complaint. Exam Const: General: cooperative, healthy appearing, comfortable, no acute distress, well developed, alert and well nourished Nutritional Appearance: well nourished Orientation/consciousness: patient oriented x3 Limitations: no limitations HENMT: Head: normal to inspection Ears: hearing grossly normal bilaterally, external ears normal, TM's normal bilaterally, EAC's normal, mastoids normal and no periauricular adenopathy Face/Nose/Sinus: Normal external nose present, Normal septum present and Nasal discharge present clear bilateral Face and sinus: face symmetric Mouth: Yes Normal oral and palatal mucosa present, Yes lip normal, Yes tongue normal and Yes moist mucous membranes Throat: posterior oropharynx normal, uvula midline, postnasal drainage and no uvular edema Eyes: General: appearance normal, both eyes and all related structures Alignment and Position: alignment normal Neck: Neck: normal visual inspection, full ROM, no lymphadenopathy and no meningeal signs Chest: Chest palpation & inspection: normal inspection of the chest Resp: Effort & Inspection: normal respiratory effort and able to speak in complete sentences Auscultation: clear to auscultation bilaterally, no crackles, no rales, no rhonchi and no wheezes Cardio: Rate: regular rate Skin: General skin exam: normal color and no rashes or lesions noted Neuro: General: patient oriented x3, gait normal, moves all extremities and no meningeal signs Cognition (Neuro): normal cognition Speech: normal speech Gait exam (Neuro): Normal gait present Extrem: General: normal to inspection, full ROM, capillary refill normal and normal gait Psych: Appearance: grossly normal and well kempt Mental Status: mental status grossly normal Speech and movement: Normal speech and movement present and Clear speech present Affect: normal affect Attitude: cooperative Course Course Level of Care: Express Care Visit Vital Signs Vital signs: Vital Signs Temperature 97.2 F L 05/24/25 09:48 Pulse Rate 85 05/24/25 09:48 Respiratory Rate 18 05/24/25 09:48 Blood Pressure 112/64 05/24/25 09:48 Pulse Oximetry 100 05/24/25 09:48 Oxygen Delivery Room Air 05/24/25 09:48 Temperature 97.2 F L 05/24/25 09:48 Pulse Rate 85 05/24/25 09:48 Respiratory Rate 18 05/24/25 09:48 Blood Pressure 112/64 05/24/25 09:48 Pulse Oximetry 100 05/24/25 09:48 Oxygen Delivery Room Air 05/24/25 09:48 Reviewed MDM - URI/Sore Throat MDM Narrative Medical decision making narrative: Patient sitting in exam room. Patient is nontoxic, vitals stable. Patient presents 2 day history of URI symptoms, allergy symptoms. No acute findings other than clear rhinorrhea, postnasal drainage noted. Discussed [id number] treatments as well as continuing using the Flonase. Patient is appropriate for outpatient treatment with close follow-up Discharge instructions reviewed with patient, as well as provided in writing per nursing staff. The instructions also include specific and strict return/GO TO THE ER as well as f/u information. All questions have been answered, and the patient deny any further questions with discharge and discharge plan. Some parts of this dictation were generated by voice recognition software and may contain typographical and/or grammatical inaccuracies. Differential Diagnosis Differential diagnosis: Likely upper respiratory infection, otitis media, sinusitis, viral infection, bronchitis, influenza and pharyngitis Critical Care Time Critical Care Time Critical Care Time: No Discharge Plan Discharge Clinical Impression: Sinusitis Qualifiers: Sinusitis location: pansinusitis Chronicity: acute Recurrence: not specified as recurrent Qualified Code(s): J01.40 - Acute pansinusitis, unspecified Patient Disposition: Home Condition: Stable Instructions: Antibiotic Form, Sinusitis (ED) Additional Instructions: Your symptoms are likely due to a viral illness, which is not treated with antibiotics. Typically viral infections last 7-10 days, can linger for couple of weeks. It is very important to treat your symptoms. Drink plenty of water, Gatorade, Pedialyte, ice pops or Jell-O. -Alternate Tylenol and Motrin per package directions for fever or pain. You can alternate every 4 hours -Antihistamine medication such as Zyrtec/Claritin/Priscilla during the day can help improve symptoms. -doing daily nasal irrigations can help relieve pressure your sinuses. Things like a Neti pot -Use Flonase twice a day for 5 days then daily to help reduce the inflammation and dry up your sinuses. -You can also use Mucinex or Sudafed. Be sure to drink plenty of water with this medication at least 8 ounces with every dose and it is important to drink 8 to 10 glasses of water per day. Water is a natural decongestant -Eat and drink things that are easy to swallow, like tea or soup, or popsicles. -Oral rinses such as: Salt water gargles and/or may use topical anesthetic (eg. Chloraseptic spray) or lozenges to relieve dryness or throat pain). -Frequent hand washing or hand central melt specialist is one of the best ways to prevent spread of infection. -Using a vaporizer or humidifier at night will also help thin secretions and help with coughing up phlegm. -Follow up with primary care provider in 7-10 days if condition is not improving - For new or worsening symptoms go directly to the nearest ER Patient Language: Kinyarwanda Prescriptions: New methylprednisolone [Medrol (Eugenio)] 4 mg tablets,dose pack See Rx Instructions PO .COMPLEX Qty: 21 0RF Rx Instructions: orally per package directions No Action cetirizine [24Hour Allergy] 10 mg tablet 10 mg PO DAILY PRN (Reason: allergy symptoms) magnesium 250 mg tablet 250 mg PO DAILY (DME) Aerochamber MV Spacer See Rx Instructions .Route Qty: 1 0RF Rx Instructions: As directed fluticasone propionate 50 mcg/actuation spray,suspension 2 spray intranasal DAILY Qty: 16 0RF Rx Instructions: administer into each nostril albuterol 90 mcg-budesonide 80 mcg/actuation HFA aerosol inhaler 90-80 mcg/actuation HFA aerosol inhaler 0RF Follow-up/Referrals: Bernie Bowen APRN [Primary Care Provider, Internal Medicine] - 2 Weeks Stand Alone Forms: Work/School Release IP Time of Disposition: 10:09
== END 2025-05-24 10:13 | disposition home or self-care (01) ==
PROVIDERS: Emergency Provider Nurse Practitioner; PCP Nurse Practitioner Family
DX: J01.40 Acute pansinusitis, unspecified (principal)
CPT/HCPCS: 99213; G0463